=== PATIENT | female | born 1990 | race Caucasian/White ===

== ENCOUNTER 2019-11-11 17:58 | Emergency (ER) | payer OTHER, SELFPAY ==
--- NOTE | 2019-11-11 18:12 | ED.DENTAL ---
HPI - Dental/Oral General Chief complaint: Dental/Oral Stated complaint: swelling from jaw down throat Time Seen by Provider: 11/11/19 18:03 Source: patient Mode of arrival: ambulatory Limitations: no limitations History of Present Illness HPI Narrative: A 29-year-old woman comes in today complaining of right upper tooth pain that has been present for the last week. Patient states that she saw a dentist and he put her on amoxicillin. She did not have any x-rays or other testing. She has had no fever but the pain radiates down her neck on the right. She denies fever, nausea, vomiting or difficulty swallowing. MD Complaint: tooth pain Location: Tooth # (2) Onset (ago): week(s) (1) Duration: constant Severity: severe Relieving factors: nothing Exacerbating factors: chewing and cold Associated symptoms: gum swelling Treatment prior to arrival: oral analgesic Related Data Allergies Allergy/AdvReac Type Severity Reaction Status Date / Time No Known Allergies Allergy Mild Unverified 11/21/17 18:12 Review of Systems Constitutional: Constitutional: Denies chills and Denies fever(s) ENT: Denies dysphagia, Denies nasal congestion and Denies sore throat Cardiovascular: Cardiovascular: Denies chest pain and Denies radiating jaw, neck or arm pain Respiratory: Respiratory: Denies cough, Denies dyspnea and Denies wheezing Gastrointestinal: Gastrointestinal: Denies abdominal pain, Denies nausea and Denies vomiting Integumentary/Breasts: Skin/Breast: Denies pruritus, Denies erythema and Denies rash Neurologic: Denies vertigo, Denies dizziness and Denies syncope Endocrine: Endocrine: Denies polydipsia and Denies polyuria Hematologic/Lymphatic: Hematologic/Lymphatic: Denies easy bleeding and Denies easy bruising Allergic/Immunologic: Allergic/Immunologic: Denies lip swelling and Denies wheezing PMF Social History Social History (Updated 11/11/19 @ 18:22 by Trell Johnson MD) Smoking status: Current every day smoker Alcohol intake: never Substance use: never Living arrangements: with family Exam Const: General: healthy appearing and alert Nutritional Appearance: obese Orientation/consciousness: patient oriented x3 Other: Moderate acute distress HENMT: Ears: external ears normal, TM's normal bilaterally and EAC's normal Teeth and gingiva: abnormal tooth and associated gingiva ( tenderness at the tooth 2 and 3) Other: There is some erosion, erythema and mild swelling on the lingual side of tooth 2. Eyes: Conjunctivae: conjunctivae normal Pupils: Equal, round and reactive pupils present EOM: EOMs intact bilaterally Resp: Effort & Inspection: normal respiratory effort and not labored Auscultation: clear to auscultation bilaterally, no rales, no rhonchi and no wheezes Cardio: Rate: regular rate Rhythm: regular rhythm Heart sounds: no murmurs Skin: General skin exam: normal color, no jaundice and no pallor Rashes: no rashes Neuro: General: patient oriented x3, moves all extremities and CN's II-XI intact bilaterally Extrem: General: normal to inspection and no clubbing, cyanosis or edema Psych: Appearance: grossly normal and well kempt Mental Status: mental status grossly normal Affect: normal affect Attitude: cooperative Thought content: Yes Normal thought content present Discharge Plan Discharge Clinical Impression: Dental abscess Patient Disposition: Home, Self-Care Condition: Stable Instructions: Antibiotic Form, Toothache (ED) Prescriptions: New acetaminophen-codeine [Tylenol-Codeine #3] 300-30 mg tablet 1 tablet PO Q4H PRN (Reason: pain) Qty: 20 RF: 0 clindamycin HCl 300 mg capsule 300 mg PO Q6H Qty: 40 RF: 0 No Action tramadol [Ultram] 50 mg tablet 50 mg PO Q6H PRN (Reason: pain) Qty: 30 RF: 0 ondansetron HCl [Zofran] 4 mg tablet 4 mg PO Q6H PRN (Reason: nausea and vomiting) Qty: 14 RF: 0 tramadol [Ultram] 50 mg tablet 50 mg PO Q6H PRN
[2019-11-11 18:20] VITALS: BP 142/66; PULSE 99; RESP 18; TEMP 36.8; O2SAT 99
[2019-11-11 18:29] VITALS: BP 140/85; PULSE 85; RESP 20; O2SAT 99
== END 2019-11-11 18:32 | disposition home or self-care (01) ==
PROVIDERS: Emergency Provider Emergency Medicine; PCP Family Medicine
DX: K04.7 Periapical abscess without sinus (principal)
CPT/HCPCS: 99283

== ENCOUNTER 2019-11-18 13:40 | Emergency (ER) | payer OTHER, SELFPAY ==
[2019-11-18 14:05] VITALS: BP 129/79; PULSE 91; RESP 18; TEMP 36.4; O2SAT 97
--- NOTE | 2019-11-18 14:24 | ED.GENADULT ---
HPI - General Adult General Chief complaint: Dental/Oral Stated complaint: abcess tooth History of Present Illness HPI narrative: Cherie presented to the emergency department with persistent tooth pain. She has pain in her upper right molar for 2 weeks. She has seen the dentist who gave her amoxicillin sent her home. She was seen in the ER where she was given clindamycin and Tylenol 3. This was 1 week prior. It did originally help but pain has returned. She is only able to eat applesauce and it has kept her from work. She denies fevers, chills, change in her voice shortness of, nausea and vomiting. She is unable to get into a dentist this time because it not deemed an emergency by them and most are close for COVID. Related Data Allergies Allergy/AdvReac Type Severity Reaction Status Date / Time No Known Allergies Allergy Mild Unverified 11/21/17 18:12 Review of Systems Constitutional: Constitutional: Reports no additional constitutional complaints Eyes: Eyes: Reports no additional eye complaints ENT: Reports as per HPI Cardiovascular: Cardiovascular: Reports no additional cardiovascular complaints Respiratory: Respiratory: Reports no additional respiratory complaints Gastrointestinal: Gastrointestinal: Reports no additional gastrointestinal complaints Genitourinary: Genitourinary: Reports no additional female genitourinary complaints Musculoskeletal: Musculoskeletal: Reports no additional musculoskeletal complaints Integumentary/Breasts: Skin/Breast: Reports system reviewed and no additional complaints, except as docu Neurologic: Reports system reviewed and no additional complaints, except as documented Psychiatric: Psychiatric: Reports no additional psychiatric complaints Endocrine: Endocrine: Reports no additional endocrine complaints Hematologic/Lymphatic: Hematologic/Lymphatic: Reports no additional hematologic/lymphatic complaints Allergic/Immunologic: Allergic/Immunologic: Reports no additional allergic/immunologic complaints [facility] Social History Social History Smoking status: Current every day smoker Alcohol intake: never Substance use: never Exam Const: General: no acute distress and alert Orientation/consciousness: patient oriented x3 Limitations: No altered mental status HENMT: Other: Normocephalic, atraumatic. Right upper molar had surrounding swelling, erythema and TTP. Not currently draining Eyes: Pupils: Equal, round and reactive pupils present Neck: Neck: normal visual inspection Other: No lymphadenopathy Resp: Effort & Inspection: normal respiratory effort Auscultation: clear to auscultation bilaterally Cardio: Rate: regular rate Rhythm: regular rhythm Heart sounds: no murmurs GI: Inspection: non-distended GI Palp: Yes Soft to palpation and No Tenderness to palpation present (GI) Skin: General skin exam: normal color Rashes: no rashes Neuro: General: patient oriented x3 and moves all extremities Extrem: General: normal to inspection Psych: Mental Status: mental status grossly normal Course Course Emergency Course: Cherie was seen and evaluated. She instructed on the importance of following up with a dentist, given return precautions, written an Rx for [place] and Augmentin then discharged. Vital Signs Vital signs: Vital Signs Temperature 36.4 C 11/18/19 14:05 Pulse Rate 91 11/18/19 14:05 Respiratory Rate 18 11/18/19 14:05 Blood Pressure 129/79 11/18/19 14:05 Pulse Oximetry 97 11/18/19 14:05 Temperature 36.4 C 11/18/19 14:05 Pulse Rate 91 11/18/19 14:05 Respiratory Rate 15 11/18/19 14:41 Blood Pressure 129/79 11/18/19 14:05 Pulse Oximetry 100 11/18/19 14:41 Medical Decision Making MDM Narrative Medical decision making narrative: Given persistent pain, swelling, erythema I have concern for persistent infection so additional Abx were given Differential Diag
[2019-11-18 14:41] VITALS: RESP 15; O2SAT 100
== END 2019-11-18 14:43 | disposition home or self-care (01) ==
PROVIDERS: Emergency Provider Family Medicine; PCP Family Medicine
DX: K04.7 Periapical abscess without sinus (principal)
CPT/HCPCS: 99283

== ENCOUNTER 2019-12-08 17:22 | Emergency (ER) | payer OTHER, SELFPAY ==
[2019-12-08 17:30] VITALS: BP 103/62; PULSE 96; RESP 16; TEMP 36.8; O2SAT 99
--- NOTE | 2019-12-08 17:51 | ED.NAVMDI ---
HPI - Nausea/Vomiting/Diarrhea General Chief complaint: Nausea/Vomiting/Diarrhea Stated complaint: vomiting, stomach pain, diarrhea, weak Time Seen by Provider: 12/08/19 17:35 Source: patient and RN notes reviewed Mode of arrival: ambulatory Limitations: no limitations History of Present Illness MD elicited complaint: nausea, vomiting, diarrhea and abdominal pain Onset (ago): day(s) (2) Description of vomiting: food contents and bilious Description of diarrhea: watery Associated nausea: Yes Associated abdominal pain: Yes Location of pain: diffuse Pain consistency: colicky Severity: moderate Quality: cramping Exacerbating factors: eating Relieving factors: none Associated symptoms: weakness Treatment prior to arrival: none (Zofran) Related Data Home Medications Medication Instructions Recorded Confirmed sumatriptan succinate [Imitrex] 25 mg PO PRN PRN 12/08/19 12/08/19 Allergies Allergy/AdvReac Type Severity Reaction Status Date / Time No Known Allergies Allergy Mild Unverified 11/21/17 18:12 Review of Systems ENT: Reports system reviewed and no additional complaints, except as documented Cardiovascular: Cardiovascular: Reports no additional cardiovascular complaints Respiratory: Respiratory: Reports no additional respiratory complaints Musculoskeletal: Musculoskeletal: Reports no additional musculoskeletal complaints Neurologic: Reports system reviewed and no additional complaints, except as documented Psychiatric: Psychiatric: Reports no additional psychiatric complaints Hematologic/Lymphatic: Hematologic/Lymphatic: Reports no additional hematologic/lymphatic complaints PMFSH Past Medical History Medical History (Updated 12/08/19 @ 19:15 by Simba Romero MD) History of migraine Surgical History Surgical History (Updated 12/08/19 @ 18:00 by Simba Romero MD) Hx of tonsillectomy Social History Social History Smoking status: Current every day smoker Alcohol intake: never Substance use: never Exam Narrative: Exam Narrative: 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 Const: General: healthy appearing, no acute distress and alert Nutritional Appearance: well nourished and obese centrally obese Orientation/consciousness: patient oriented x3 HENMT: Head: normal to inspection General nose exam: Normal external nose present Face and sinus: normal facial exam Mouth: Yes lip normal and Yes moist mucous membranes Eyes: Cornea: corneas normal Pupils: Equal, round and reactive pupils present EOM: EOMs intact bilaterally Neck: Neck: normal visual inspection and no lymphadenopathy Resp: Effort & Inspection: normal respiratory effort Auscultation: clear to auscultation bilaterally Cardio: Rate: regular rate Rhythm: regular rhythm GI: GI Palp: Yes Soft to palpation, Yes Tenderness to palpation present (GI) ( Mild, diffusely), No Guarding due to palpation present (GI) and No Rebound tenderness present Auscultation: normal bowel sounds Back/Spine/Pelvis: Cervical Spine: cervical ROM normal Thoracic/Lumbar Spine: thoraco-lumbar ROM normal Skin: General skin exam: normal color Rashes: no rashes Neuro: General: patient oriented x3, moves all extremities and no focal motor deficits Speech: normal speech Extrem: General: normal to inspection and no clubbing, cyanosis or edema Psych: Appearance: grossly normal and well kempt Mental Status: mental status grossly normal Affect: normal affect Attitude: cooperative Thought content: Yes Normal thought content present Course Vital Signs Vital signs: Vital Signs Temperature 36.8 C 12/08/19 17:30 Pulse Rate 96 12/08/19 17:30 Respiratory Rate 16 12/08/19 17:30 Blood Pressure 103/62 12/08/19 17:30 Pulse Oximetry 99 12/08/19 17:30 Temperature 36.8 C 12/08/19 17:30 Pulse Rate 88 12/08/19 19:04 Respiratory Rate 13 12/08/19 19:04 Blood Pressure 104/57 L
[2019-12-08 18:04] LABS: Basophils Absolute Auto 0.04 K/mm3 (0.00-0.10); Basophils Percent Auto 0.4 % (0.0-1.0); Eosinophils Absolute Auto 0.27 K/mm3 (0.02-0.50); Eosinophils Percent Auto 2.6 % (1.0-6.0); Hematocrit 37.3 % (35.0-49.0); Hemoglobin 12.4 g/dL (12.0-15.0); Immature Granulocyte Absolute 0.02 K/mm3 (0.00-0.00); Immature Granulocyte Percent A 0.2 % (0.0-0.0); Lymphocytes Absolute Auto 2.63 K/mm3 (1.10-4.50); Lymphocytes Percent Auto 24.9 % (18.0-42.0); Mean Corpuscular HGB Conc 33.2 g/dL (32.0-36.0); Mean Corpuscular Hemoglobin 28.8 pg (27.0-31.0); Mean Corpuscular Volume 86.7 fL (78.0-102.0); Mean Platelet Volume 10.8 fl (9.2-11.8); Monocytes Absolute Auto 0.55 K/mm3 (0.10-0.90); Monocytes Percent Auto 5.2 % (2.0-11.0); Neutrophils Percent Auto 66.7 % (50.0-70.0); Platelet Count Result 312 K/mm3 (150-420); Red Cell Distribution Width 12.8 % (11.6-14.4); White Blood Count 10.6 K/mm3 (4.8-10.8)
[2019-12-08 18:20] LABS: Alanine Aminotransferase 14 U/L (14-59); Albumin Level 3.4 g/dL (3.4-5.0); Alkaline Phosphatase 65 U/L (46-116); Anion Gap 14.5 mmol/L (7-16); Aspartate Amino Transferase 12 U/L (15-37); Blood Urea Nitrogen 13 mg/dL (7-18); CRP 0.6 mg/dL (0.0-0.9); Carbon Dioxide 25 mmol/L (21-32); Chloride 104 mmol/L (98-108); Estimated CRCL calculation 101 ml/min; Estimated Glomerular Filt Rate > 60; Glucose 135 mg/dL (70-99); Lipase 115 U/L (73-393); Osmolality Calculated 292 mOsm/kg (285-295); Potassium 3.5 mmol/L (3.5-5.1); Sodium 140 mmol/L (136-145); Total Protein 7.1 g/dL (6.4-8.2)
[2019-12-08 18:22] LABS: Bilirubin,Total < 0.1 mg/dL (0.00-1.00)
[2019-12-08] MEDS: PROMETHAZINE HCL 25 MG/ML AMPUL IM (18:51)
[2019-12-08 19:04] VITALS: BP 104/57; PULSE 88; RESP 13; O2SAT 100
== END 2019-12-08 19:24 | disposition home or self-care (01) ==
PROVIDERS: Emergency Provider Emergency Medicine; PCP Family Medicine
DX: K52.9 Noninfective gastroenteritis and colitis, unspecified (principal)
CPT/HCPCS: 36415; 80053; 83690; 85025; 86140; 96372; 99283; J2550

== ENCOUNTER 2019-12-25 12:53 | Emergency (ER) | payer OTHER, SELFPAY ==
[2019-12-25 13:15] VITALS: BP 130/78; PULSE 104; RESP 21; TEMP 36.8; O2SAT 97
--- NOTE | 2019-12-25 13:37 | ED.SKABFB ---
HPI - Skin/Abscess/Foreign Bdy General Chief complaint: Skin/Abscess/Foreign Body Stated complaint: face swollen Source: patient Mode of arrival: ambulatory Limitations: no limitations History of Present Illness complaint: abscess/boil Onset (ago): day(s) Location: head and face Severity: mild Quality: burning, aching and sharp Pain Consistency: constant Relieving factors: none Exacerbating factors: none Associated symptoms: denies other symptoms Treatments prior to arrival: attempted to drain pus at home and antibiotic (taking 3 doese of left over clindamycin) Related Data Allergies Allergy/AdvReac Type Severity Reaction Status Date / Time No Known Allergies Allergy Mild Unverified 11/21/17 18:12 Review of Systems Review of Systems: All systems reviewed & are unremarkable except as noted in HPI and below PMFSH Past Medical History Medical History History of migraine Surgical History Surgical History Hx of tonsillectomy Social History Social History Smoking status: Current every day smoker Alcohol intake: never Substance use: never Gender identity (if verbalized by the patient): Male Exam Const: General: no acute distress Nutritional Appearance: well nourished and obese Orientation/consciousness: patient oriented x3 HENMT: Head: normal to inspection Eyes: Pupils: Equal, round and reactive pupils present Neck: Neck: normal visual inspection Chest: Chest palpation & inspection: normal inspection of the chest Resp: Effort & Inspection: normal respiratory effort Cardio: Rate: regular rate GI: Auscultation: normal bowel sounds Skin: General skin exam: normal color Other: small areaas of abscess to mid forehead at hair line. no significant swelling, sild redness. No puss could be expressed at this time, but pt states greenish colored pus had been obtained earlier today Neuro: General: patient oriented x3 Extrem: General: normal to inspection Psych: Appearance: grossly normal Mental Status: mental status grossly normal Thought content: Yes Normal thought content present Course Course Emergency Course: unable to express pus Vital Signs Vital signs: Vital Signs Temperature 36.8 C 12/25/19 13:15 Pulse Rate 104 H 12/25/19 13:15 Respiratory Rate 21 H 12/25/19 13:15 Blood Pressure 130/78 12/25/19 13:15 Pulse Oximetry 97 12/25/19 13:15 Temperature 36.8 C 12/25/19 13:15 Pulse Rate 104 H 12/25/19 13:15 Respiratory Rate 21 H 12/25/19 13:15 Blood Pressure 130/78 12/25/19 13:15 Pulse Oximetry 97 12/25/19 13:15 Critical Care Time Critical Care Time Critical Care Time: No Discharge Plan Discharge Clinical Impression: Abscess of skin or subcutaneous tissue Patient Disposition: Home, Self-Care Condition: Stable Instructions: Antibiotic Form, Abscess (ED) Prescriptions: New sulfamethoxazole-trimethoprim [Bactrim DS] 800-160 mg tablet 1 tablet PO Q12H Qty: 20 RF: 0 Follow-up/Referrals: Leonardo Taylor DO [Primary Care Provider] - Time of Disposition: 13:43
[2019-12-25] MEDS: TETANUS,DIPHTHERIA,AC PERTUSSIS ADULT 0.5 ML (ADACEL) IM (14:14)
[2019-12-25 14:22] VITALS: RESP 16
== END 2019-12-25 14:23 | disposition home or self-care (01) ==
PROVIDERS: Emergency Provider Emergency Medicine; PCP Family Medicine
DX: L02.91 Cutaneous abscess, unspecified (principal)
CPT/HCPCS: 90471; 90715; 99283

== ENCOUNTER 2020-03-01 19:27 | Emergency (ER) | payer OTHER, SELFPAY ==
[2020-03-01 19:47] VITALS: BP 141/77; PULSE 87; RESP 18; TEMP 36.9; O2SAT 97
--- NOTE | 2020-03-01 19:54 | ED.HA ---
HPI - Headache General Chief Complaint: Headache Stated Complaint: migraine Time Seen by Provider: 03/01/20 19:54 Source: patient Mode of arrival: ambulatory Limitations: no limitations History of Present Illness HPI Narrative: 29-year-old woman with history of migraines comes in today complaining of headache pain that is frontal and typical for her migraines and associated with nausea. She states that her headache started approximately 10:00 p.m. last night. She has had no fever, vomiting and she has no history of seizures, recent head injury. She states that she has taken [id number] anti-inflammatories today and she has taken 2 doses 25 mg Imitrex p.o. to no avail. MD elicited complaint: migraine Pertinent past history: migraines Onset (ago): day(s) (1) Onset description: gradually Location: frontal Severity: moderate Quality & Timing: throbbing and constant Exacerbating factors: none Relieving factors: nothing Context: occurred at rest Associated symptoms: nausea Treatments prior to arrival: migraine medication and other ( Excedrin migraine) Related Data Home Medications Medication Instructions Recorded Confirmed sumatriptan succinate [Imitrex] 50 mg PO ONCE 03/01/20 03/01/20 Allergies Allergy/AdvReac Type Severity Reaction Status Date / Time No Known Allergies Allergy Mild Unverified 11/21/17 18:12 Review of Systems Constitutional: Constitutional: Denies chills, Denies fever(s) and Denies weakness Eyes: Eyes: Denies change in vision and Reports photophobia ENT: Denies dysphagia, Denies nasal congestion and Denies sore throat Cardiovascular: Cardiovascular: Reports chest pain and Reports radiating jaw, neck or arm pain Respiratory: Respiratory: Reports cough, Reports dyspnea and Reports wheezing Gastrointestinal: Gastrointestinal: Denies abdominal pain, Denies diarrhea, Reports nausea and Denies vomiting Musculoskeletal: Musculoskeletal: Denies back pain, Denies joint swelling and Denies muscle cramps Integumentary/Breasts: Skin/Breast: Denies pruritus, Denies erythema and Denies rash Neurologic: Denies vertigo, Denies dizziness and Denies syncope Hematologic/Lymphatic: Hematologic/Lymphatic: Denies easy bleeding and Denies easy bruising Allergic/Immunologic: Allergic/Immunologic: Denies lip swelling and Denies wheezing PMFSH Past Medical History Medical History History of migraine Surgical History Surgical History Hx of tonsillectomy Social History Social History Smoking status: Current every day smoker Alcohol intake: never Substance use: never Gender identity (if verbalized by the patient): Male Exam Const: General: healthy appearing and alert Limitations: no limitations Other: moderate acute distress. HENMT: Head: normal to inspection Ears: external ears normal, TM's normal bilaterally and EAC's normal Face and sinus: normal facial exam Mouth: Yes moist mucous membranes abnormal Throat: posterior oropharynx normal Eyes: Conjunctivae: conjunctivae normal Pupils: Equal, round and reactive pupils present EOM: EOMs intact bilaterally Neck: Neck: normal visual inspection and no meningeal signs Resp: Effort & Inspection: normal respiratory effort and not labored Auscultation: clear to auscultation bilaterally, no rales, no rhonchi and no wheezes Cardio: Rate: regular rate Rhythm: regular rhythm Heart sounds: no murmurs Skin: General skin exam: normal color, no jaundice and no pallor Rashes: no rashes Neuro: General: patient oriented x3, moves all extremities, no focal motor deficits and CN's II-XI intact bilaterally Speech: normal speech Gait exam (Neuro): Normal gait present Other: Normal [id number]. DTRs 2+ and symmetric at the patellar and calcaneal tenderness bilaterally. Extr
[2020-03-01] MEDS: KETOROLAC (*BKC) 60 MG/2 ML VIAL IM (20:13)
[2020-03-01] MEDS: diphenhydrAMINE HCl INJ 50 MG/ML VIAL 25 MG IM (20:13)
[2020-03-01] MEDS: METOCLOPRAMIDE HCL INJ 10 MG/2 ML VIAL IM (20:14)
[2020-03-01 21:05] VITALS: BP 124/69; PULSE 90; RESP 18; O2SAT 98
== END 2020-03-01 21:10 | disposition home or self-care (01) ==
PROVIDERS: Emergency Provider Emergency Medicine; PCP Family Medicine
DX: G43.909 Migraine, unspecified, not intractable, without status migrainosus (principal)
CPT/HCPCS: 96372; 99283; 99284; J1200; J1885; J2765

== ENCOUNTER 2020-03-08 14:11 | Emergency (ER) | payer OTHER, SELFPAY ==
[2020-03-08 14:14] VITALS: BP 151/85; PULSE 117; RESP 16; TEMP 36.8; O2SAT 98
[2020-03-08 14:20] VITALS: RESP 16
--- NOTE | 2020-03-08 14:44 | ED.GENADULT ---
HPI - General Adult General Chief complaint: Unspecified Stated complaint: sore thorat cant swallow Source: patient Mode of arrival: ambulatory Limitations: no limitations History of Present Illness HPI narrative: pt states she started having a sore throat yesterday, and was worse today. No fevers, no nausea, no SOB, no cough. She states its just a sore throat and she feels a little tired Onset (ago): day(s) Severity: mild Quality: sharp Pain Consistency: constant Associated symptoms: denies other symptoms Related Data Home Medications Medication Instructions Recorded Confirmed ketorolac 10 mg PO QID PRN 03/08/20 03/08/20 Allergies Allergy/AdvReac Type Severity Reaction Status Date / Time No Known Allergies Allergy Mild Verified 03/08/20 14:53 Review of Systems Review of Systems: All systems reviewed & are unremarkable except as noted in HPI and below Constitutional: Constitutional: Denies chills, Reports fatigue, Denies fever(s) and Denies weakness Eyes: Eyes: Reports no additional eye complaints ENT: Reports system reviewed and no additional complaints, except as documented, Denies vertigo, Denies dizziness, Denies epistaxis, Denies nasal congestion and Reports sore throat Cardiovascular: Cardiovascular: Reports no additional cardiovascular complaints Respiratory: Respiratory: Reports no additional respiratory complaints Gastrointestinal: Gastrointestinal: Reports no additional gastrointestinal complaints Genitourinary: Genitourinary: Reports no additional female genitourinary complaints Musculoskeletal: Musculoskeletal: Reports no additional musculoskeletal complaints Integumentary/Breasts: Skin/Breast: Reports system reviewed and no additional complaints, except as docu Neurologic: Reports system reviewed and no additional complaints, except as documented Psychiatric: Psychiatric: Reports no additional psychiatric complaints Endocrine: Endocrine: Reports no additional endocrine complaints Hematologic/Lymphatic: Hematologic/Lymphatic: Reports no additional hematologic/lymphatic complaints Allergic/Immunologic: Allergic/Immunologic: Reports no additional allergic/immunologic complaints [facility] Past Medical History Medical History History of migraine Surgical History Surgical History Hx of tonsillectomy Social History Social History Smoking status: Current every day smoker Alcohol intake: never Substance use: never Gender identity (if verbalized by the patient): Male Exam Const: General: no acute distress and alert Orientation/consciousness: patient oriented x3 HENMT: Head: normal to inspection Other: mild erythema in throat Eyes: Pupils: Equal, round and reactive pupils present Neck: Neck: normal visual inspection and lymphadenopathy Chest: Chest palpation & inspection: normal inspection of the chest Resp: Effort & Inspection: normal respiratory effort Cardio: Rate: regular rate GI: GI Palp: Yes Soft to palpation and No Tenderness to palpation present (GI) Auscultation: normal bowel sounds : General: Yes no CVA tenderness Back/Spine/Pelvis: Back: no CVA tenderness Skin: General skin exam: normal color Neuro: General: patient oriented x3, moves all extremities, no meningeal signs and no focal motor deficits Speech: normal speech Extrem: General: normal to inspection Psych: Appearance: grossly normal Mental Status: mental status grossly normal Course Vital Signs Vital signs: Vital Signs Temperature 36.8 C 03/08/20 14:14 Pulse Rate 117 H 03/08/20 14:14 Respiratory Rate 16 03/08/20 14:14 Blood Pressure 151/85 H 03/08/20 14:14 Pulse Oximetry 98 03/08/20 14:14 Temperature 36.8 C 03/08/20 14:14 Pulse Rate 117 H 03/08/20 14:14 Respiratory Rate 16 03/08
[2020-03-08 15:35] VITALS: BP 132/93; PULSE 106; O2SAT 98
== END 2020-03-08 15:35 | disposition home or self-care (01) ==
PROVIDERS: Emergency Provider Emergency Medicine; PCP Family Medicine
DX: J02.9 Acute pharyngitis, unspecified (principal)
CPT/HCPCS: 87081; 87880; 99282; 99283

== ENCOUNTER 2020-05-19 19:43 | Emergency (ER) | payer OTHER, SELFPAY ==
[2020-05-19 19:58] VITALS: BP 137/68; PULSE 95; RESP 16; TEMP 36.3; O2SAT 97
--- NOTE | 2020-05-19 20:43 | ED.HA ---
HPI - Headache General Chief Complaint: Headache Stated Complaint: migraine Source: patient Mode of arrival: ambulatory Limitations: no limitations History of Present Illness HPI Narrative: this is a 30-year-old female presents with some migraine headache throbbing right-sided with some light sensitivity and sound sensitivity, with nausea with no vomiting has some blurry vision this is her typical migraine headache has tried [id number] medications with minimal relief. There is no vomiting no fever no neck stiffness no shortness of breath no abdominal pain no diarrhea constipation. MD elicited complaint: headache and migraine Onset (ago): hour(s) Onset description: gradually Location: right and other ( Pulsating) Severity: moderate Pain scale (0-10): 8 Quality & Timing: throbbing and similar to previous headaches Exacerbating factors: light and noise Relieving factors: rest Context: occurred at rest Associated symptoms: nausea Related Data Home Medications Medication Instructions Recorded Confirmed ketorolac 10 mg PO QID PRN 03/08/20 05/19/20 Allergies Allergy/AdvReac Type Severity Reaction Status Date / Time No Known Allergies Allergy Mild Verified 03/08/20 14:53 Review of Systems Review of Systems: All systems reviewed & are unremarkable except as noted in HPI and below PMFSH Past Medical History Medical History History of migraine Surgical History Surgical History Hx of tonsillectomy Social History Social History Smoking status: Current every day smoker Alcohol intake: never Substance use: never Gender identity (if verbalized by the patient): Male Exam Const: General: no acute distress and alert Orientation/consciousness: patient oriented x3 HENMT: Head: normal to inspection Ears: external ears normal Eyes: Conjunctivae: conjunctivae normal Pupils: Equal, round and reactive pupils present EOM: EOMs intact bilaterally Neck: Neck: normal visual inspection, no lymphadenopathy and no meningeal signs Chest: Chest palpation & inspection: normal inspection of the chest Resp: Effort & Inspection: normal respiratory effort Auscultation: clear to auscultation bilaterally Cardio: Rate: regular rate Rhythm: regular rhythm GI: GI Palp: Yes Soft to palpation Auscultation: normal bowel sounds : General: Yes no CVA tenderness Urinary Catheter: Urinary Catheter: patent and draining Back/Spine/Pelvis: Back: no CVA tenderness Neuro: General: patient oriented x3, moves all extremities, no meningeal signs and no focal motor deficits Extrem: General: normal to inspection and no pedal edema Psych: Appearance: grossly normal Mental Status: mental status grossly normal Affect: normal affect Thought content: Yes Normal thought content present Course Course Emergency Course: After re-evaluation of patient after receiving a Toradol/ Reg gland/Benadryl and IV fluids as patient is pain level has significantly improved. Vital Signs Vital signs: Vital Signs Temperature 36.3 C L 05/19/20 19:58 Pulse Rate 95 05/19/20 19:58 Respiratory Rate 16 05/19/20 19:58 Blood Pressure 137/68 05/19/20 19:58 Pulse Oximetry 97 05/19/20 19:58 Temperature 36.3 C L 05/19/20 19:58 Pulse Rate 95 05/19/20 19:58 Respiratory Rate 16 05/19/20 19:58 Blood Pressure 137/68 05/19/20 19:58 Pulse Oximetry 97 05/19/20 19:58 Critical Care Time Critical Care Time Critical Care Time: No Discharge Plan Discharge Clinical Impression: Migraine Qualifiers: Migraine type: unspecified Status migrainosus presence: without status migrainosus Intractability: not intractable Qualified Code(s): G43.909 - Migraine, unspecified, not intractable, without status migrainosus Patient Disposition: Home, Self-Care Cond
[2020-05-19] MEDS: diphenhydrAMINE HCl INJ 50 MG/ML VIAL 25 MG IV PUSH (20:46)
[2020-05-19] MEDS: SODIUM CHLORIDE 0.9% IV 1,000 ML 999 ML IV CONT (20:46)
[2020-05-19] MEDS: KETOROLAC 30 MG/ML VIAL (*BKC) IV PUSH (20:47)
[2020-05-19] MEDS: METOCLOPRAMIDE HCL INJ 10 MG/2 ML VIAL IV PUSH (20:50)
[2020-05-19 21:46] VITALS: BP 125/56; PULSE 77; RESP 16; O2SAT 98
== END 2020-05-19 21:46 | disposition home or self-care (01) ==
PROVIDERS: Emergency Provider Emergency Medicine; PCP Family Medicine
DX: G43.909 Migraine, unspecified, not intractable, without status migrainosus (principal)
CPT/HCPCS: 96361; 96374; 96375; 99283; 99284; J1200; J1885; J2765; J7030

== ENCOUNTER 2020-06-27 17:04 | Emergency (ER) | payer OTHER, SELFPAY ==
[2020-06-27 17:10] VITALS: BP 134/74; PULSE 109; RESP 20; TEMP 37; O2SAT 97
--- NOTE | 2020-06-27 17:12 | ED.SKABFB ---
HPI - Skin/Abscess/Foreign Bdy General Stated complaint: sores on knee and thigh Source: patient and RN notes reviewed Mode of arrival: ambulatory Limitations: no limitations History of Present Illness complaint: abscess/boil Onset (ago): day(s) (3) Location: RLE Severity: moderate Quality: burning and dull Relieving factors: none Exacerbating factors: palpation and movement Context: none Associated symptoms: denies other symptoms Treatments prior to arrival: bandages and OTC topical medication (drawing elisabeth) Related Data Home Medications Medication Instructions Recorded Confirmed ketorolac 10 mg PO QID PRN 03/08/20 05/19/20 Allergies Allergy/AdvReac Type Severity Reaction Status Date / Time No Known Allergies Allergy Mild Verified 03/08/20 14:53 Review of Systems Review of Systems: All systems reviewed & are unremarkable except as noted in HPI and below Constitutional: Constitutional: Denies chills and Denies fever(s) PMFSH Past Medical History Medical History (Updated 06/27/20 @ 17:28 by Simba Romero MD) Depression History of migraine Surgical History Surgical History Hx of tonsillectomy Social History Social History Smoking status: Current every day smoker Alcohol intake: never Substance use: never Gender identity (if verbalized by the patient): Male Exam Const: General: healthy appearing and no acute distress Nutritional Appearance: well nourished Orientation/consciousness: patient oriented x3 Other: Female nurse in room during examination. HENMT: Head: normal to inspection Ears: external ears normal Eyes: Conjunctivae: conjunctivae normal Pupils: Equal, round and reactive pupils present EOM: EOMs intact bilaterally Neck: Neck: normal visual inspection Resp: Effort & Inspection: normal respiratory effort Auscultation: clear to auscultation bilaterally Cardio: Rate: regular rate Rhythm: regular rhythm GI: GI Palp: Yes Soft to palpation and No Tenderness to palpation present (GI) Auscultation: normal bowel sounds Back/Spine/Pelvis: Cervical Spine: cervical ROM normal Thoracic/Lumbar Spine: thoraco-lumbar ROM normal Skin: General skin exam: erythema, fluctuance and induration Lesions: lesion noted erosion right anterior upper leg borders well-defined, color, consistency fluctuant and mobile, morphology and tender Other: Patient has multiple excoriated lesions on her lower extremities. Most are healing with scabs. Area in question is the right upper thigh just distal to the inguinal canal. Very tender appears ulcerated. When palpated there is no drainage available for culture. Neuro: General: patient oriented x3, moves all extremities and no focal motor deficits Speech: normal speech Gait exam (Neuro): Normal gait present Extrem: General: no clubbing, cyanosis or edema Psych: Appearance: grossly normal and well kempt Mental Status: mental status grossly normal Affect: normal affect Attitude: cooperative Thought content: Yes Normal thought content present Discharge Plan Discharge Clinical Impression: Abscess Patient Disposition: Home, Self-Care Condition: Stable Instructions: Antibiotic Form, Abscess (ED) Additional Instructions: use Tylenol and or Motrin as needed for pain follow-up with your primary care physician in the worsening symptoms. Prescriptions: New sulfamethoxazole-trimethoprim [Bactrim DS] 800-160 mg tablet 2 tablet PO Q12H 14 Days Qty: 56 RF: 0 No Action ketorolac 10 mg Tablet 10 mg PO QID PRN (Reason: Migraine Headache) RF: 0 tramadol [Ultram] 50 mg tablet 50 mg PO Q6H PRN (Reason: pain) Qty: 20 RF: 0 ondansetron HCl [Zofran] 4 mg tablet 4 mg PO Q6H PRN (Reason: nausea and vomiting) Qty: 10 RF: 0 Follow-up/Referrals: Avery Rosenbaum M.D. [Primary Care Provider] - Time of Disposition:
[2020-06-27 17:30] VITALS: RESP 20
== END 2020-06-27 17:30 | disposition home or self-care (01) ==
PROVIDERS: Emergency Provider Emergency Medicine; PCP Family Medicine
DX: L02.91 Cutaneous abscess, unspecified (principal)
CPT/HCPCS: 99283

== ENCOUNTER 2020-12-19 21:30 | Emergency (ER) | payer OTHER, SELFPAY ==
--- NOTE | ~2020-12-19 | XR_ITS ---
EXAMINATION: XR chest 2V DATE: 12/19/2020 23:53 INDICATION: Cough. TECHNIQUE: Frontal and lateral views of the chest were obtained. COMPARISON: None. FINDINGS: The chest demonstrates clear lungs without pneumonia, pleural effusion, or pneumothorax. Th e heart size is normal. IMPRESSION: 1. . No acute cardiopulmonary disease. Reviewed, dictated and finalized at location A.
--- NOTE | 2020-12-19 22:15 | ED.URI ---
HPI - URI/Sore Throat General Chief Complaint: Upper Respiratory Infection Stated Complaint: cough Source: patient and RN notes reviewed Mode of arrival: ambulatory Limitations: no limitations History of Present Illness MD elicited complaint: cough Pertinent past history: other (bronchitis) Onset (ago): week(s) (1) Consistency: constant Severity: moderate Able to tolerate fluids by mouth: Yes Exacerbating factors: nothing Relieving factors: nothing Associated symptoms: nasal congestion and sore throat Treatments prior to arrival: none Related Data Home Medications Medication Instructions Recorded Confirmed No Home Medications 12/19/20 12/19/20 Allergies Allergy/AdvReac Type Severity Reaction Status Date / Time No Known Allergies Allergy Mild Verified 03/08/20 14:53 Review of Systems Constitutional: Constitutional: Denies chills, Denies fever(s) and Denies weakness Respiratory: Respiratory: Denies dyspnea and Denies wheezing Gastrointestinal: Gastrointestinal: Denies diarrhea, Denies nausea and Denies vomiting Neurologic: Reports system reviewed and no additional complaints, except as documented PMFSH Past Medical History Medical History Depression History of migraine Surgical History Surgical History Hx of tonsillectomy Social History Social History Smoking status: Current every day smoker Alcohol intake: never Substance use: never Gender identity (if verbalized by the patient): Male Exam Const: General: healthy appearing and no acute distress Nutritional Appearance: well nourished and obese centrally obese Orientation/consciousness: patient oriented x3 HENMT: Head: normal to inspection Ears: external ears normal and TM's normal bilaterally General nose exam: Normal external nose present and Normal nares present Face and sinus: normal facial exam Mouth: Yes moist mucous membranes Throat: posterior oropharynx normal Eyes: Conjunctivae: conjunctivae normal Pupils: Equal, round and reactive pupils present EOM: EOMs intact bilaterally Neck: Neck: normal visual inspection and no lymphadenopathy Resp: Effort & Inspection: normal respiratory effort Auscultation: rhonchi upper bilaterally Cardio: Rate: regular rate Rhythm: regular rhythm Back/Spine/Pelvis: Cervical Spine: cervical ROM normal Thoracic/Lumbar Spine: thoraco-lumbar ROM normal Skin: General skin exam: normal color Rashes: no rashes Neuro: General: patient oriented x3, moves all extremities and no focal motor deficits Speech: normal speech Gait exam (Neuro): Normal gait present Extrem: General: normal to inspection and no clubbing, cyanosis or edema Psych: Appearance: grossly normal and well kempt Mental Status: mental status grossly normal Affect: normal affect Attitude: cooperative Thought content: Yes Normal thought content present Course Vital Signs Vital signs: Vital Signs Temperature 36.3 C L 12/19/20 22:30 Pulse Rate 85 12/19/20 22:30 Respiratory Rate 20 12/19/20 22:30 Blood Pressure 135/88 12/19/20 22:30 Pulse Oximetry 97 12/19/20 22:30 Temperature 36.6 C 12/20/20 00:36 Pulse Rate 85 12/20/20 00:36 Respiratory Rate 20 12/20/20 00:36 Blood Pressure 133/71 12/20/20 00:36 Pulse Oximetry 98 12/20/20 00:36 MDM - URI/Sore Throat Lab Data Labs: Lab Results 12/19/20 12/19/20 Range/Units 22:40 22:40 Influenza Type A Ag Negative (Negative) Influenza Type B Ag Negative (Negative) SARS-CoV-2 RNA (RT-PCR) Negative (Negative) Discharge Plan Discharge Clinical Impression: Upper respiratory infection Qualifiers: URI type: unspecified viral URI Qualified Code(s): J06.9 - Acute upper respiratory infection, unspecified Patient Disposition: Home, Self-Care Condition: Stable
[2020-12-19 22:30] VITALS: BP 135/88; PULSE 85; RESP 20; TEMP 36.3; O2SAT 97
[2020-12-19 22:43] VITALS: O2SAT 96
[2020-12-19 23:24] LABS: SARS-CoV-2 RNA PCR Negative (Negative)
[2020-12-19 23:47] LABS: Influenza Control Valid (Valid)
[2020-12-20 00:36] VITALS: BP 133/71; PULSE 85; RESP 20; TEMP 36.6; O2SAT 98
== END 2020-12-20 00:37 | disposition home or self-care (01) ==
PROVIDERS: Emergency Provider Emergency Medicine; PCP Family Medicine
DX: J06.9 Acute upper respiratory infection, unspecified (principal); Z20.822 Contact with and (suspected) exposure to COVID-19
CPT/HCPCS: 71046; 87804; 99282; 99283; C9803; U0003; U0005

== ENCOUNTER 2021-08-18 13:02 | Emergency (ER) | payer OTHER, SELFPAY ==
[2021-08-18 13:08] VITALS: BP 131/88; PULSE 110; RESP 16; TEMP 36.6; O2SAT 97
--- NOTE | 2021-08-18 13:15 | ED.SKABFB ---
HPI - Skin/Abscess/Foreign Bdy General Chief complaint: Skin/Abscess/Foreign Body Stated complaint: eye and face swollen Source: patient Mode of arrival: ambulatory Limitations: no limitations History of Present Illness HPI narrative: this is a 31-year-old female with no significant past medical history presents with firm abscess with some erythema and redness in the right restoration area that is firm painful to touch with no tracking there is an area of erythema surrounding the abscess but not affecting the the eye with no fever chills no shortness of breath. complaint: abscess/boil Onset (ago): day(s) Location: face Severity scale (1-10): 3 Quality: burning and aching Related Data Allergies Allergy/AdvReac Type Severity Reaction Status Date / Time No Known Allergies Allergy Mild Verified 08/18/21 13:13 Review of Systems Review of Systems: All systems reviewed & are unremarkable except as noted in HPI and below PMFSH Past Medical History Medical History Depression History of migraine Surgical History Surgical History Hx of tonsillectomy Social History Social History Smoking status: Current every day smoker Alcohol intake: never Substance use: never Gender identity (if verbalized by the patient): Male Exam Const: General: no acute distress Orientation/consciousness: patient oriented x3 HENMT: Head: normal to inspection Eyes: Conjunctivae: conjunctivae normal Pupils: Equal, round and reactive pupils present Neck: Neck: normal visual inspection, no lymphadenopathy and no meningeal signs Chest: Chest palpation & inspection: normal inspection of the chest Resp: Effort & Inspection: normal respiratory effort Auscultation: clear to auscultation bilaterally Cardio: Rate: regular rate Rhythm: regular rhythm GI: Auscultation: normal bowel sounds : General: Yes no CVA tenderness Back/Spine/Pelvis: Back: no CVA tenderness Skin: Other: Firm abscess bright temper area with an area of erythema that is firm tender to touch warm with no drainage. Neuro: General: patient oriented x3 Extrem: General: normal to inspection and no pedal edema Psych: Mental Status: mental status grossly normal Course Course Emergency Course: Abscess formation right restoration area, will administer 1g ceftriaxone IM and advised patient to take Tylenol or Motrin along with p.o. antibiotics sent to her pharmacy. Critical Care Time Critical Care Time Critical Care Time: No Discharge Plan Discharge Clinical Impression: Cellulitis Qualifiers: Site of cellulitis: head Qualified Code(s): L03.811 - Cellulitis of head [any part, except face] Abscess of skin or subcutaneous tissue Qualifiers: Site of cutaneous abscess: head Qualified Code(s): L02.811 - Cutaneous abscess of head [any part, except face] Patient Disposition: Home, Self-Care Condition: Stable Instructions: Antibiotic Form, Cellulitis (ED), Abscess (ED) Additional Instructions: Take medicine as prescribed, can take Tylenol or Motrin along with antibiotics and follow-up primary care physician within 1 week for further evaluation and treatment. Prescriptions: New amoxicillin-pot clavulanate [Augmentin] 875-125 mg tablet 1 tablet PO Q12H Qty: 20 RF: 0 Follow-up/Referrals: Avery Rosenbaum M.D. [Primary Care Provider] - Time of Disposition: 13:20
--- NOTE | 2021-08-18 13:37 | PC.NURSE ---
ERP gave verbal with readback order to administer 2mL of lidocaine with Rocephin injection IM.
[2021-08-18] MEDS: cefTRIAXone 1 GM VIAL IM (13:38)
[2021-08-18] MEDS: LIDOCAINE HCL 1% LOCAL INJ 20 ML VIAL (13:38)
== END 2021-08-18 13:42 | disposition home or self-care (01) ==
PROVIDERS: Emergency Provider Emergency Medicine; PCP Family Medicine
DX: L03.811 Cellulitis of head [any part, except face] (principal); L02.811 Cutaneous abscess of head [any part, except face]
CPT/HCPCS: 96372; 99283; J0696

== ENCOUNTER 2021-10-01 17:02 | Inpatient (IN) | payer OTHER, SELFPAY ==
[2021-10-01] VITALS (7 sets, daily range): BP systolic 113–153; BP diastolic 64–108; PULSE 112–126; RESP 15–20; TEMP 35.6–37.9; O2SAT 100; BMI 34.2
--- NOTE | ~2021-10-01 | CT_ITS ---
EXAMINATION: CT soft tissue neck w con DATE: 10/01/2021 19:21 INDICATION: Swelling of the neck and right nondenominational TECHNIQUE: Computed tomography (CT) of the neck was performed with 75 cc of Omnipaque 350 intravenous contrast. The dose-length product (DLP) was 508.53 mGy-cm. Automated exposure control and iterative reconstruction technique were employed. COMPARISON: None FINDINGS: There is marked cellulitis and soft tissue swelling of the right nondenominational. No discrete fluid collection or abscess is identified. There is mild posterior cervical triangle lymphadenopathy on the right. The airway is patent. The vascular structures are unremarkable. IMPRESSION: 1. Soft tissue cellulitis of the left nondenominational without associated abscess. 2. Lymphadenopathy of the right neck, likely reactive. Reviewed, dictated and finalized at location F. [facility] TESTER
--- NOTE | ~2021-10-01 | CT_ITS ---
EXAMINATION: CT facial bones wo con DATE: 10/03/2021 16:51 INDICATION: Right temporal cellulitis and severe pain. TECHNIQUE: Computed tomography (CT) of the facial bones and maxillofacial region was performed withou t intravenous contrast. Coronal reconstructions were obtained. Automated exposure control and iterati ve reconstruction technique were employed. The dose-length product was 300.62 mGy-cm. COMPARISON: 10/01/2021 FINDINGS: No significant change in prominence of tissue swelling with subcutaneous edema at the right side of t he face extending to the right temporal region. No evident abscess. There is asymmetrically enlarged likely reactive lymphadenopathy in the right submandibular, intraparotid, preauricular, jugular chain and posterior cervical triangle. Bones are unremarkable. Orbits are normal. The paranasal sinuses, m astoid air cells and middle ear cavities are clear. Mild mid cervical spondylosis. IMPRESSION: 1. Unchanged soft tissue cellulitis at the right side of the face and temporal region of the head. No abscess. 2. Asymmetric right-sided facial and cervical lymphadenopathy. Reviewed, dictated and finalized at location A. R AEROBICS INSTRUCTOR
--- NOTE | ~2021-10-01 | US_ITS ---
US renal BI 10/07/2021 09:03 Procedure: Realtime transabdominal ultrasound of the kidneys and bladder. Indication: Acute renal insufficiency Comparison: No prior studies for comparison. Findings: Renal echotexture is normal bilaterally without hydronephrosis, contour deforming mass or r enal calculus. The right kidney measures 12.4 cm and left kidney measures 13.2 cm. Bladder within no rmal limits. Impression: 1: Unremarkable renal ultrasound. No stones, masses or hydronephrosis. Reviewed, dictated and finalized at location A. METER OPERATOR Impression: 1: Unremarkable renal ultrasound. No stones, masses or hydronephrosis.
--- NOTE | 2021-10-01 17:37 | ECG_ITS ---
Measurements Intervals [place] Rate: 109 P: 64 NM: 139 QRS: 48 QRSD: 77 T: 33 QT: 330 QTc: 446 Interpretive Statements SINUS TACHYCARDIA BASELINE ARTIFACT- I, III, AVL, AVF ABNORMAL ECG Electronically Signed On 10-01-2021 20:28:59 HAND TUFTER by Tolu Howe D.O.
--- NOTE | 2021-10-01 17:43 | ED.GENADULT ---
HPI - General Adult General Chief complaint: Wound/Laceration Stated complaint: facial infection Time Seen by Provider: 10/01/21 17:14 Source: patient Mode of arrival: ambulatory Limitations: no limitations History of Present Illness HPI narrative: Patient presents for evaluation of right-sided facial pain and swelling. She states 2 days ago she attempted to trim the hair in her temporal region. He electric suly was not working so she repeatedly went over the area with a razor. Yesterday she had some irritation in that area and noted a pimple . Today she woke from sleep with significant swelling. She has noted a green discharge from the area. No fever, chills, nausea, vomiting. She is not diabetic. She attempted to apply prid to the area. She states her pain level is 7/10 in severity. She has a hx of drug abuse. 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 She does use marijuana. She initially informed me that she has not used any other street drugs in a year, but later tells me that she used cocaine about a week ago. She states that she has intermittently been seeing spots out of her right eye today. Related Data Home Medications Medication Instructions Recorded Confirmed No Home Medications 10/01/21 10/01/21 Allergies Allergy/AdvReac Type Severity Reaction Status Date / Time No Known Allergies Allergy Mild Verified 08/18/21 13:13 Review of Systems Review of Systems: CONSTITUTIONAL: Denies fever, chills, or sweats. EYES:Reports seeing spots with right eye. Denies other visual disturbance. ENT: Reports right sided facial pain. Reports green drainage from right side of the face. Denies rhinorrhea, congestion, sore throat, or otalgia. CARDIOVASCULAR: Denies chest pain, palpitations, or edema. RESPIRATORY: Denies cough or dyspnea. GASTROINTESTINAL: Denies abdominal pain, nausea, vomiting, or diarrhea. GENITOURINARY: Denies dysuria or hematuria. SKIN: Reports area of swelling and redness to right side of her face MUSCULOSKELETAL: Denies back pain, joint pain, or myalgia. NEUROLOGIC: Denies headache, numbness, dizziness, or weakness. PSYCHIATRIC: Denies anxiety or depression. [facility] Past Medical History Medical History Depression Drug abuse History of migraine Surgical History Surgical History Hx of tonsillectomy Family History Family History Mother Family history non-contributory Social History Social History (Updated 10/01/21 @ 17:50 by VIKKI WhitfieldP, ) Smoking status: Current every day smoker Alcohol intake: never Substance use: current Substance use type: marijuana, crack/cocaine and amphetamines Living arrangements: with family Gender identity (if verbalized by the patient): Male Sexual Orientation (if Verbalized by the Patient): Straight or Heterosexual Spiritual care concerns: No Exam Narrative: GENERAL: Well-appearing, well-nourished, and in no acute distress. HEAD: Normocephalic, atraumatic. EYES: PERRLA and EOMI. ENT: Nares clear, no rhinorrhea or epistaxis. Mucous membranes moist. Oropharynx without tonsillar hypertrophy exudate or other lesions. Bilateral TMs pearly aden nonbulging NECK: Supple. No adenopathy or masses. No carotid bruits or JVD CHEST: Clear to auscultation. No respiratory distress. No wheezes rales or rhonchi HEART: Regular rate and rhythm. No murmur heard. Normal peripheral pulses. ABDOMEN: Soft, nontender, nondistended, normal active bowel sounds. EXTREMITIES: Normal range of motion. No edema. SKIN: Multiple scarred lesions to bilateral upper extremities. She has concealer over several of these areas. There is an approximately 8 x 4 cm area of erythema with induration to the right side of the tempo
[2021-10-01] MEDS: SODIUM CHLORIDE 0.9% IV 1,000 ML 999 ML IV CONT (18:38)
[2021-10-01 18:40] LABS: Basophils Percent Auto 0.2 % (0.2-1.2); Eosinophils Absolute Auto 0.1 K/mm3 (0-0.3); Eosinophils Percent Auto 0.3 % (0-4.4); Hematocrit 34.8 % (37.0-47.0); Hemoglobin 11.2 g/dL (12.0-15.0); Immature Granulocyte Absolute 0.12 K/mm3 (0.00-0.031); Immature Granulocyte Percent A 0.7 % (0-0.5); Lymphocytes Absolute Auto 2.12 K/mm3 (0.9-3.2); Lymphocytes Percent Auto 11.6 % (18.3-44.2); Mean Corpuscular HGB Conc 32.2 g/dl (32-36); Mean Corpuscular Hemoglobin 26.8 pg (26-34); Mean Corpuscular Volume 83.3 fl (80-100); Mean Platelet Volume 10.9 fl (7.4-10.4); Monocytes Percent Auto 5.5 % (2.6-8.5); Neutrophils Absolute Auto 14.9 K/mm3 (1.3-6.7); Neutrophils Percent Auto 81.7 % (45.5-73.1); Platelet Count Result 372 k/mm3 (150-375); Red Blood Count 4.18 M/mm3 (4.2-5.4); Red Cell Distribution Width 14.6 % (11.5-14.5); White Blood Count 18.3 K/mm3 (4.5-10.0)
[2021-10-01 18:50] LABS: Lactic Acid Reflex 1.1 mmol/L (0.7-2.1)
[2021-10-01 18:51] LABS: Alanine Aminotransferase 21 U/L (4-35); Albumin Level 4.8 g/dL (3.5-5.1); Alkaline Phosphatase 77 U/L (38-126); Anion Gap 13 mmol/L (8-16); Aspartate Amino Transferase 29 U/L (14-36); Bilirubin,Total 0.6 mg/dL (0.2-1.3); Blood Urea Nitrogen 10 mg/dL (7-17); Calcium 9.3 mg/dL (8.4-10.2); Carbon Dioxide 24 mmol/L (22-30); Chloride 100 mmol/L (98-107); Estimated CRCL calculation 106 ml/min; Estimated Glomerular Filt Rate > 60; Glucose 99 mg/dL (65-110); Potassium 3.8 mmol/L (3.4-5.0); Sodium 137 mmol/L (137-145)
[2021-10-01 18:54] LABS: Add Urine Microscopic? YES; Appearance Urine Cloudy (Clear); Bacteria Urine Trace /hpf; Bilirubin Urine Negative (Negative); Blood Urine Negative (Negative); Color Urine Yellow (Yellow); Glucose Urine UA Negative (Negative); Ketones Urine Negative (Negative); Leukocyte Esterase Ur 2+ LEU/UL (Negative); Mucus Urine Rare /lpf; Nitrate Urine Negative (Negative); Protein Urine Negative (Negative); Specific Grav Ur 1.024 (1.001-1.035); Squamous Epithelial Cell Urine Many /hpf (Few); Urobilinogen Urine Negative mg/dL (<2.0); WBC Urine 31-50 /hpf
[2021-10-01 19:14] LABS: Prothrombin Time 12.3 Seconds (11.1-14.7)
[2021-10-01 20:14] LABS: SARS-CoV-2 RNA PCR Positive
[2021-10-01 20:39] LABS: Barbiturate Screen Urine Negative (Negative); Benzodiazepines Screen Urine Negative (Negative)
[2021-10-01] MEDS: KETOROLAC 30 MG/ML VIAL (*BKC) IV PUSH (20:44)
[2021-10-01 21:06] LABS: Amphetamine Screen Urine Positive (Negative); Cannabinoid Screen Urine Negative (Negative); Cocaine Screen Urine Negative (Negative); Methadone Screen Urine Negative (Negative); Opiate Screen Urine Negative (Negative); Phencyclidine Screen Urine Negative (Negative)
--- NOTE | 2021-10-01 22:08 | PM.IMHP ---
H&P: HPI History of Present Illness Date/Time: 10/01/21 21:40 Chief Complaint: Facial wound and redness Narrative: 31-year-old female with past medical history of his tobacco use, methamphetamine use and binge drinking who presented to the ER via private vehicle due to right facial wound with associated redness and swelling. Patient is a fair historian and gives variable accounts of her symptoms. The patient reports that she was shaving her right scientology region in her electric shaver was not working so she went over the area with a razor a couple of days ago. Yesterday she noticed some irritation and a pimple. Today she woke from sleep with significant swelling, pain and some green to yellow crusting drainage to her right scientology and lateral cheek. She had had a similar infection to this back in July and was sent home from the ER with oral antibiotics. Today she applied Prid salve to the pimple. She also noticed some thick clear discharge from her eye and right lower eyelid swelling. However she has had come to the ER when her pain continued to worsen and she developed worsening swelling in her face extending down into her neck. She does report that her throat feels a little bit sore when she swallows but she is not having any difficulty swallowing. She denies any shortness of breath, cough or congestion. She reports that her pain is a 7/10 in intensity and is worse with palpation. She does not have any trismus. She did note having difficulty with some intermittent spots in her vision today. She thought this may be due to some drainage from her eye. She is not having any scleral icterus or significant drainage noted at the time of my evaluation. The patient denied any fevers or chills but was febrile on presentation to the ER with temperature of 100.3?. She was also tachycardic with heart rate in the 120s. She does have a history of drug abuse. She has smoked methamphetamines on and off since she was 19 years old. She reported that she was clean from methamphetamines for 7 years but started using again 1 year ago. Her last use of meth was 4 days ago. She denies ever having used IV drugs. She last used cocaine yesterday. She reports that she rarely uses cocaine. She also reports rare marijuana use. On exam both I and the ER provider were unable to express any pus from the area of infection. Patient had a COVID swab performed for bed placement. Her COVID swab came back positive. She has not vaccinated against COVID. She does not have any known ill contacts. She denies any cough, congestion, shortness of breath, fevers or chills. She denies any rhinorrhea or nasal congestion. She denies any loss of sense of taste or smell. Review of Systems Review of Systems: 12 systems were reviewed with pertinent positives and negatives per HPI. Except as documented in the HPI, all other systems were reviewed and are negative. [facility] Past Medical History Medical History Depression Drug abuse History of migraine Surgical History Surgical History Hx of tonsillectomy Family History Family History (Updated 10/01/21 @ 22:10 by Ramonita Prabhakar DO) Mother Healthy female Grandparent Breast cancer Social History Social History (Updated 10/01/21 @ 22:14 by Ramonita Prabhakar DO) Social History: The patient and her 6-year-old daughter recently moved back in with her mother. 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 She has smoked half pack of cigarettes per day since she was 18. She smokes methamphetamines on a frequent basis. She occasionally smokes marijuana. She rarely uses cocaine. She denies any IV drug use. She binge drinks every other weekend or so. Surrogate decision maker: Mother Smoking packs per day: 0.5 Smoking cigarettes per day: 1
[2021-10-02] VITALS (8 sets, daily range): BP systolic 113–137; BP diastolic 64–79; PULSE 98–126; RESP 17–20; TEMP 35.6–37; O2SAT 100
[2021-10-02] MEDS: NICOTINE (*PBKC) 4 MG GUM PO (00:06)
[2021-10-02] MEDS: SODIUM CHLORIDE 0.9% IV 1,000 ML 125 ML IV CONT ×2 (00:06→14:58)
[2021-10-02] MEDS: ENOXAPARIN 40 MG/0.4 ML SYRINGE SUB-Q (08:32)
[2021-10-02 09:37] LABS: Basophils Percent Auto 0.2 % (0.2-1.2); Eosinophils Absolute Auto 0.1 K/mm3 (0-0.3); Eosinophils Percent Auto 0.9 % (0-4.4); Hematocrit 30.2 % (37.0-47.0); Hemoglobin 9.6 g/dL (12.0-15.0); Immature Granulocyte Absolute 0.05 K/mm3 (0.00-0.031); Immature Granulocyte Percent A 0.4 % (0-0.5); Lymphocytes Absolute Auto 1.84 K/mm3 (0.9-3.2); Lymphocytes Percent Auto 14.1 % (18.3-44.2); Mean Corpuscular HGB Conc 31.8 g/dl (32-36); Mean Corpuscular Hemoglobin 26.9 pg (26-34); Mean Corpuscular Volume 84.6 fl (80-100); Mean Platelet Volume 10.8 fl (7.4-10.4); Monocytes Absolute Auto 0.9 K/mm3 (0.1-0.6); Monocytes Percent Auto 7.1 % (2.6-8.5); Neutrophils Absolute Auto 10.1 K/mm3 (1.3-6.7); Neutrophils Percent Auto 77.3 % (45.5-73.1); Platelet Count Result 294 k/mm3 (150-375); Red Blood Count 3.57 M/mm3 (4.2-5.4); Red Cell Distribution Width 14.7 % (11.5-14.5)
[2021-10-02 09:49] LABS: Anion Gap 5 mmol/L (8-16); Blood Urea Nitrogen 10 mg/dL (7-17); Calcium 8.3 mg/dL (8.4-10.2); Carbon Dioxide 28 mmol/L (22-30); Chloride 105 mmol/L (98-107); Estimated CRCL calculation 126 ml/min; Estimated Glomerular Filt Rate > 60; Glucose 106 mg/dL (65-110); Potassium 3.5 mmol/L (3.4-5.0); Sodium 138 mmol/L (137-145)
[2021-10-02] MEDS: ACETAMINOPHEN 325 MG TABLET 650 MG PO (11:12)
[2021-10-02] MEDS: HYDROcodone/acetaminophen (*CRX) 5-325 MG TABLET 1 TAB PO ×2 (14:54→23:03)
--- NOTE | 2021-10-02 16:03 | P.PNIM_ITS ---
Progress Note: A&P Assessment and Plan (1) Sepsis: Qualifiers: Sepsis type: sepsis due to unspecified organism Sepsis acute organ dysfunction status: without acute organ dysfunction Qualified Code(s): A41.9 - Sepsis, unspecified organism Code(s): A41.9 - Sepsis, unspecified organism Status: Acute Assessment and Plan: Secondary to facial cellulitis. Septic evident by fever, tachycardia, leukocytosis. * Blood and wound cultures are pending * Continue vancomycin and ceftriaxone * Leukocytosis is improving. Patient is afebrile today (2) Cellulitis of face: Code(s): L03.211 - Cellulitis of face Status: Acute Assessment and Plan: Secondary to shaving vs skin picking secondary to methamphetamine use, likely combination of the two * CT scan showed cellulitis without associated abscess * Noted by previous provider to have yellow crusting, not appreciated on my exam today * Continue vancomycin and Rocephin as above while awaiting cultures * Supportive care. Analgesics available as needed (3) COVID: Code(s): U07.1 - COVID-19 Status: Acute Assessment and Plan: Patient incidentally found to be COVID positive without any evidence of pneumonia or symptomatology * Isolation precautions implemented * No COVID-19 specific treatment at this time as she is asymptomatic and has no oxygen requirement * Supportive care as needed (4) Drug abuse: Code(s): F19.10 - Other psychoactive substance abuse, uncomplicated Status: Acute Assessment and Plan: Patient smoked methamphetamine on a frequent basis * On admission was reported to be generally and restless. Ativan provided p.r.n. for anxiety * Drug cessation was discussed with the patient * No evidence of withdrawal symptoms on my exam. (5) Tobacco abuse disorder: Code(s): Z72.0 - Tobacco use Status: Acute Assessment and Plan: Patient does endorse cigarette cravings * Nicotine gum as needed * Continues reinforce tobacco cessation (6) Abnormal urinalysis: Code(s): R82.90 - Unspecified abnormal findings in urine Status: Acute Assessment and Plan: UA abnormal however with many squamous cells, likely contamination. Patient denies urinary symptoms. * Urine culture is pending. * Remains on IV antibiotics for cellulitis. (7) Sinus tachycardia: Code(s): R00.0 - Tachycardia, unspecified Status: Acute Assessment and Plan: Patient tachycardic ranging from 105-125 * Seems to be slowly improving * Likely related to pain and anxiety * EKG reviewed; continue to monitor Subjective Date/time seen: General: --, -year-old -male, - , comfortable, NARD Neuro: awake, alert and oriented x__, speech clear, no focal neuro deficits noted HEENMT: normocephalic, atraumatic, EOMI, sclerae anicteric, moist oral mucosa Respiratory: clear to auscultation bilaterally, nonlabored breathing Cardio: regular rate, regular rhythm with S1-S2 Abdomen: nondistended, normoactive bowel sounds, soft, nontender to palpation, no rigidity or guarding : Extremities: no edema, erythema, or tenderness to palpation, DP pulses 2+ bilaterally Skin: no rashes or lesions, warm and dry Psych: appropriate mood and affect, judgment and insight [id number] 16:03 Interval history: Date of service: 10/02/2021 Cherie Cabello is a 31-year-old female with a history of tobacco abuse, methamphetamine abuse, migraines, depression who is seen in follow-up
--- NOTE | 2021-10-02 16:03 | PM.IMPN ---
Progress Note: A&P Assessment and Plan (1) Sepsis: Qualifiers: Sepsis type: sepsis due to unspecified organism Sepsis acute organ dysfunction status: without acute organ dysfunction Qualified Code(s): A41.9 - Sepsis, unspecified organism Code(s): A41.9 - Sepsis, unspecified organism Status: Acute Assessment and Plan: Secondary to facial cellulitis. Septic evident by fever, tachycardia, leukocytosis. Blood and wound cultures are pending Continue vancomycin and ceftriaxone Leukocytosis is improving. Patient is afebrile today (2) Cellulitis of face: Code(s): L03.211 - Cellulitis of face Status: Acute Assessment and Plan: Secondary to shaving vs skin picking secondary to methamphetamine use, likely combination of the two CT scan showed cellulitis without associated abscess Noted by previous provider to have yellow crusting, not appreciated on my exam today Continue vancomycin and Rocephin as above while awaiting cultures Supportive care. Analgesics available as needed (3) COVID: Code(s): U07.1 - COVID-19 Status: Acute Assessment and Plan: Patient incidentally found to be COVID positive without any evidence of pneumonia or symptomatology Isolation precautions implemented No COVID-19 specific treatment at this time as she is asymptomatic and has no oxygen requirement Supportive care as needed (4) Drug abuse: Code(s): F19.10 - Other psychoactive substance abuse, uncomplicated Status: Acute Assessment and Plan: Patient smoked methamphetamine on a frequent basis On admission was reported to be generally and restless. Ativan provided p.r.n. for anxiety Drug cessation was discussed with the patient No evidence of withdrawal symptoms on my exam. (5) Tobacco abuse disorder: Code(s): Z72.0 - Tobacco use Status: Acute Assessment and Plan: Patient does endorse cigarette cravings Nicotine gum as needed Continues reinforce tobacco cessation (6) Abnormal urinalysis: Code(s): R82.90 - Unspecified abnormal findings in urine Status: Acute Assessment and Plan: UA abnormal however with many squamous cells, likely contamination. Patient denies urinary symptoms. Urine culture is pending. Remains on IV antibiotics for cellulitis. (7) Sinus tachycardia: Code(s): R00.0 - Tachycardia, unspecified Status: Acute Assessment and Plan: Patient tachycardic ranging from 105-125 Seems to be slowly improving Likely related to pain and anxiety EKG reviewed; continue to monitor Subjective Date/time seen: General: --, -year-old -male, - , comfortable, NARD Neuro: awake, alert and oriented x__, speech clear, no focal neuro deficits noted HEENMT: normocephalic, atraumatic, EOMI, sclerae anicteric, moist oral mucosa Respiratory: clear to auscultation bilaterally, nonlabored breathing Cardio: regular rate, regular rhythm with S1-S2 Abdomen: nondistended, normoactive bowel sounds, soft, nontender to palpation, no rigidity or guarding : Extremities: no edema, erythema, or tenderness to palpation, DP pulses 2+ bilaterally Skin: no rashes or lesions, warm and dry Psych: appropriate mood and affect, judgment and insight [id number] 16:03 Interval history: Date of service: 10/02/2021 Cherie Cabello is a 31-year-old female with a history of tobacco abuse, methamphetamine abuse, migraines, depression who is seen in follow-up for facial cellulitis. She is feeling a bit better today. She still has pain spread diffusely over the left face that has been up to a 9/10 today. She is extremely tender and feels swollen. Pain spreads laterally to the left ear. She also has a bit of swelling under her eye but she states this is actually improved from yesterday. She denies any visual changes including double vision or blurred vision. Reports her face feels warm to touch. Den
[2021-10-03] VITALS (8 sets, daily range): BP systolic 123–135; BP diastolic 70–86; PULSE 94–105; RESP 16–20; TEMP 36–36.8; O2SAT 99–100
[2021-10-03 06:42] LABS: Hematocrit 29.7 % (37.0-47.0); Hemoglobin 9.3 g/dL (12.0-15.0); Mean Corpuscular HGB Conc 31.3 g/dl (32-36); Mean Corpuscular Hemoglobin 26.9 pg (26-34); Mean Corpuscular Volume 85.8 fl (80-100); Mean Platelet Volume 10.7 fl (7.4-10.4); Platelet Count Result 301 k/mm3 (150-375); Red Blood Count 3.46 M/mm3 (4.2-5.4); Red Cell Distribution Width 14.7 % (11.5-14.5); White Blood Count 12.5 K/mm3 (4.5-10.0)
[2021-10-03 07:12] LABS: Vancomycin Trough 7.1 ug/mL (10.0-20.0)
[2021-10-03 07:33] LABS: Anion Gap 9 mmol/L (8-16); Blood Urea Nitrogen 4 mg/dL (7-17); CRP 5.8 mg/dL (<1.0); Calcium 8.2 mg/dL (8.4-10.2); Carbon Dioxide 24 mmol/L (22-30); Chloride 107 mmol/L (98-107); Estimated CRCL calculation 148 ml/min; Estimated Glomerular Filt Rate > 60; Glucose 124 mg/dL (65-110); Potassium 3.7 mmol/L (3.4-5.0); Sodium 140 mmol/L (137-145)
[2021-10-03] MEDS: ENOXAPARIN 40 MG/0.4 ML SYRINGE SUB-Q (10:10)
[2021-10-03] MEDS: HYDROcodone/acetaminophen (*CRX) 5-325 MG TABLET 1 TAB PO (10:13)
--- NOTE | 2021-10-03 15:27 | P.PNIM_ITS ---
Progress Note: A&P Assessment and Plan (1) Sepsis: Qualifiers: Sepsis type: sepsis due to unspecified organism Sepsis acute organ dysfunction status: without acute organ dysfunction Qualified Code(s): A41.9 - Sepsis, unspecified organism Code(s): A41.9 - Sepsis, unspecified organism Status: Acute Assessment and Plan: Secondary to facial cellulitis. Septic evident by fever, tachycardia, leukocytosis. * Preliminary blood cultures negative to date * Continue IV antibiotics as described below * Leukocytosis is improving. Patient afebrile >36 hours (2) Cellulitis of face: Code(s): L03.211 - Cellulitis of face Status: Acute Assessment and Plan: Secondary to shaving vs skin picking secondary to methamphetamine use, likely combination of the two * CT scan soft tissue neck showed cellulitis without associated abscess * Preliminary wound culture with growth of Staphylococcus aureus, await final cultures and susceptibilities * Continue vancomycin. Broaden coverage to Zosyn. * Due to increased edema and pain, will repeat CT to ensure no interval abscess development. Will proceed with contrast facial CT * Given involvement of the ear, I have called ENT Dr. Terrazas for recommendations * Supportive care. Analgesics available as needed (3) COVID: Code(s): U07.1 - COVID-19 Status: Acute Assessment and Plan: Patient incidentally found to be COVID positive without any evidence of pneumonia or symptomatology * Isolation precautions implemented * No COVID-19 specific treatment at this time as she is asymptomatic and has no oxygen requirement * Supportive care as needed (4) Drug abuse: Code(s): F19.10 - Other psychoactive substance abuse, uncomplicated Status: Acute Assessment and Plan: Patient smoked methamphetamine on a frequent basis * On admission was reported to be agitated and restless. This has resolved. Ativan provided p.r.n. for anxiety * Drug cessation was discussed with the patient * No evidence of withdrawal symptoms on my exam. (5) Tobacco abuse disorder: Code(s): Z72.0 - Tobacco use Status: Acute Assessment and Plan: Patient does endorse cigarette cravings * Nicotine gum as needed * Continues reinforce tobacco cessation (6) Abnormal urinalysis: Code(s): R82.90 - Unspecified abnormal findings in urine Status: Acute Assessment and Plan: UA abnormal however with many squamous cells, likely contamination. Patient denies urinary symptoms. * Urine culture negative (7) Sinus tachycardia: Code(s): R00.0 - Tachycardia, unspecified Status: Acute Assessment and Plan: Patient tachycardic ranging from 105-125 * Improving. * HR 95-105 today * Likely related to pain and anxiety * EKG reviewed which showed sinus tachycardia; continue to monitor Additional Plan Discussed case with my supervising physician Subjective Date/time seen: 10/03/21 15:27 Interval history: Date of service: 10/02/2021 Cherie Cabello is a 31-year-old female with a history of tobacco abuse, methamphetamine abuse, migraines, depression who is seen in follow-up for facial cellulitis. She notes no improvement today. Feels she is more swollen and states that her swelling is spreading down her neck, making it difficult for her to swallow. She also thinks that it is spreading towards her ear and states that her ear is protruding. She endorses muffled hearing and ear pain. She is able to ea
--- NOTE | 2021-10-03 15:27 | PM.IMPN ---
Progress Note: A&P Assessment and Plan (1) Sepsis: Qualifiers: Sepsis type: sepsis due to unspecified organism Sepsis acute organ dysfunction status: without acute organ dysfunction Qualified Code(s): A41.9 - Sepsis, unspecified organism Code(s): A41.9 - Sepsis, unspecified organism Status: Acute Assessment and Plan: Secondary to facial cellulitis. Septic evident by fever, tachycardia, leukocytosis. Preliminary blood cultures negative to date Continue IV antibiotics as described below Leukocytosis is improving. Patient afebrile >36 hours (2) Cellulitis of face: Code(s): L03.211 - Cellulitis of face Status: Acute Assessment and Plan: Secondary to shaving vs skin picking secondary to methamphetamine use, likely combination of the two CT scan soft tissue neck showed cellulitis without associated abscess Preliminary wound culture with growth of Staphylococcus aureus, await final cultures and susceptibilities Continue vancomycin. Broaden coverage to Zosyn. Due to increased edema and pain, will repeat CT to ensure no interval abscess development. Will proceed with contrast facial CT Given involvement of the ear, I have called ENT Dr. Terrazas for recommendations Supportive care. Analgesics available as needed (3) COVID: Code(s): U07.1 - COVID-19 Status: Acute Assessment and Plan: Patient incidentally found to be COVID positive without any evidence of pneumonia or symptomatology Isolation precautions implemented No COVID-19 specific treatment at this time as she is asymptomatic and has no oxygen requirement Supportive care as needed (4) Drug abuse: Code(s): F19.10 - Other psychoactive substance abuse, uncomplicated Status: Acute Assessment and Plan: Patient smoked methamphetamine on a frequent basis On admission was reported to be agitated and restless. This has resolved. Ativan provided p.r.n. for anxiety Drug cessation was discussed with the patient No evidence of withdrawal symptoms on my exam. (5) Tobacco abuse disorder: Code(s): Z72.0 - Tobacco use Status: Acute Assessment and Plan: Patient does endorse cigarette cravings Nicotine gum as needed Continues reinforce tobacco cessation (6) Abnormal urinalysis: Code(s): R82.90 - Unspecified abnormal findings in urine Status: Acute Assessment and Plan: UA abnormal however with many squamous cells, likely contamination. Patient denies urinary symptoms. Urine culture negative (7) Sinus tachycardia: Code(s): R00.0 - Tachycardia, unspecified Status: Acute Assessment and Plan: Patient tachycardic ranging from 105-125 Improving. HR 95-105 today Likely related to pain and anxiety EKG reviewed which showed sinus tachycardia; continue to monitor Additional Plan Discussed case with my supervising physician Subjective Date/time seen: 10/03/21 15:27 Interval history: Date of service: 10/02/2021 Cherie Cabello is a 31-year-old female with a history of tobacco abuse, methamphetamine abuse, migraines, depression who is seen in follow-up for facial cellulitis. She notes no improvement today. Feels she is more swollen and states that her swelling is spreading down her neck, making it difficult for her to swallow. She also thinks that it is spreading towards her ear and states that her ear is protruding. She endorses muffled hearing and ear pain. She is able to eat, though states it is difficult for her to chew and she is having to chew on her left side only. Feels that her swelling below her left eye is improved. Continues to deny visual changes including blurred vision or double vision. She denies nausea, vomiting, fever, chills, sweats. No drainage from the wound. She states the left side of her face feels very puffy. Denies shortness breath, cough, chest pain, palpitations, dizziness, lighth
[2021-10-03] MEDS: LIDOCAINE HCL 1% LOCAL INJ 20 ML VIAL 3 ML INFILTRATE (18:10)
[2021-10-03] MEDS: SACCHAROMYCES BOULARDII 250 MG CAPSULE PO (18:26)
--- NOTE | 2021-10-03 18:41 | WPDPROCEDUR ---
Procedures Abscess I/D Site: face Side (if applicable): right Anesthetic used: lidocaine 1% Technique: needle aspiration, incised with #11 blade and probed loculations Amount of fluid (mL): 5 Irrigation: No Packing used?: iodoform Comments: Consent obtained, large right sided facial abscess, 1cc of lidocaine applied, opened with 11 blade approximately 1cm, opened probed with blunt dissection, copius amounts of purulence expressed. Packed with a large amount 6 inches or so of 1/4 inch packing
[2021-10-03] MEDS: traMADol HCL (*CRX) 50 MG TABLET PO (18:45)
--- NOTE | 2021-10-03 18:46 | WPDCN ---
Assessment and Plan Assessment and plan (1) Facial abscess: Code(s): L02.01 - Cutaneous abscess of face Status: Acute Assessment and Plan: S/p I and D of large right sided facial abscess. Change packing daily, 6 to 10 inches is reasonable to try. Wean abx per culture, warm compresses, pressure when awake, call with any questions, . Initial abx may have been appropriate, just not soon enough to prevent abscess. HPI Data of Consult Date/Time: 10/03/21 18:46 Requesting Physician: Adelia Walter PA-C Primary Care Provider: Avery Rosenbaum M.D. Consult Narrative Narrative: Cherie Cabello is a 31 year old female with right sided facial infection. Per my read, non contrasted ct possible abscess just deep to skin. Report of improving vitals and wbc, worsening appearance and symptoms today. PMFSH Past Medical History Medical History Depression Drug abuse History of migraine Surgical History Surgical History Hx of tonsillectomy Family History Family History (Updated 10/01/21 @ 22:10 by Ramonita Prabhakar DO) Mother Healthy female Grandparent Breast cancer Social History Social History (Updated 10/01/21 @ 22:14 by Ramonita Prabhakar DO) Social History: The patient and her 6-year-old daughter recently moved back in with her mother. 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 She has smoked half pack of cigarettes per day since she was 18. She smokes methamphetamines on a frequent basis. She occasionally smokes marijuana. She rarely uses cocaine. She denies any IV drug use. She binge drinks every other weekend or so. Surrogate decision maker: Mother Smoking packs per day: 0.5 Smoking cigarettes per day: 10.0 Years smoked: 10 Smoking pack-years: 5.00 Smoking status: Light tobacco smoker Tobacco type: cigarettes Second hand tobacco smoke exposure: No Alcohol intake: current Drinks per week: 5 Substance use: current Substance use type: marijuana, crack/cocaine, methamphetamine and prescription drug Last use: last weekend Living arrangements: with family Gender identity (if verbalized by the patient): Male Sexual Orientation (if Verbalized by the Patient): Straight or Heterosexual Spiritual care concerns: No Meds Home Medications and Allergies Home Medications Medication Instructions Recorded Confirmed Type No Home Medications 10/01/21 10/01/21 History Allergies Allergy/AdvReac Type Severity Reaction Status Date / Time No Known Allergies Allergy Mild Verified 08/18/21 13:13 Vital Signs Vital Signs - 24 hr 10/02/21 20:00 10/03/21 00:00 10/03/21 00:42 Temperature 36.5 C 36.7 C 36.7 C Pulse Rate 105 H 105 H 105 H Respiratory Rate 20 20 20 Blood Pressure 137/75 132/76 132/76 Pulse Oximetry 100 100 100 10/03/21 04:00 10/03/21 04:42 10/03/21 08:00 Temperature 36.0 C L 36.0 C L 36.2 C L Pulse Rate 103 H 103 H 94 Respiratory Rate 18 18 16 Blood Pressure 127/70 127/70 127/86 Pulse Oximetry 99 99 100 10/03/21 12:00 10/03/21 16:00 Temperature 36.1 C L 36.3 C L Pulse Rate 100 100 Respiratory Rate 17 18 Blood Pressure 123/70 135/79 Pulse Oximetry 99 99 Exam HENMT: Other: large 5x6cm right sided facial abscess. Results Labs CBC & Chem 7: 10/03/21 06:14 10/03/21 06:14 Labs: Short CBC 10/03/21 Range/Units 06:14 WBC 12.5 H (4.5-10.0) K/mm3 Hgb 9.3 L (12.0-15.0) g/dL Hct 29.7 L (37.0-47.0) % Plt Count 301 (150-375) k/mm3 BMP 10/03/21 06:14 Sodium 140 Potassium 3.7 Chloride 107 Carbon Dioxide 24 BUN 4 L D Creatinine 0.50 L Glucose 124 H Calcium 8.2 L
[2021-10-04] VITALS (7 sets, daily range): BP systolic 117–131; BP diastolic 70–93; PULSE 87–99; RESP 12–18; TEMP 35.9–37.4; O2SAT 97–100
[2021-10-04] MEDS: ACETAMINOPHEN 325 MG TABLET 650 MG PO (01:13)
[2021-10-04 06:46] LABS: Hematocrit 30.6 % (37.0-47.0); Hemoglobin 9.7 g/dL (12.0-15.0); Mean Corpuscular HGB Conc 31.7 g/dl (32-36); Mean Corpuscular Hemoglobin 26.9 pg (26-34); Mean Corpuscular Volume 84.8 fl (80-100); Mean Platelet Volume 10.5 fl (7.4-10.4); Platelet Count Result 340 k/mm3 (150-375); Red Blood Count 3.61 M/mm3 (4.2-5.4); Red Cell Distribution Width 14.4 % (11.5-14.5); White Blood Count 9.3 K/mm3 (4.5-10.0)
[2021-10-04 07:01] LABS: Anion Gap 8 mmol/L (8-16); Blood Urea Nitrogen 4 mg/dL (7-17); CRP 2.7 mg/dL (<1.0); Calcium 8.7 mg/dL (8.4-10.2); Carbon Dioxide 29 mmol/L (22-30); Chloride 104 mmol/L (98-107); Estimated CRCL calculation 109 ml/min; Estimated Glomerular Filt Rate > 60; Glucose 106 mg/dL (65-110); Potassium 3.7 mmol/L (3.4-5.0); Sodium 141 mmol/L (137-145)
[2021-10-04] MEDS: ENOXAPARIN 40 MG/0.4 ML SYRINGE SUB-Q (08:59)
[2021-10-04] MEDS: SACCHAROMYCES BOULARDII 250 MG CAPSULE PO ×2 (08:59→17:04)
--- NOTE | 2021-10-04 10:44 | P.PNIM_ITS ---
Progress Note: A&P Assessment and Plan (1) Sepsis: Qualifiers: Sepsis type: sepsis due to unspecified organism Sepsis acute organ dysfunction status: without acute organ dysfunction Qualified Code(s): A41.9 - Sepsis, unspecified organism Code(s): A41.9 - Sepsis, unspecified organism Status: Acute Assessment and Plan: Secondary to facial cellulitis and abscess. Septic evident by fever, tachycardia, leukocytosis. * Preliminary blood cultures negative to date * Continue IV antibiotics as described below * Leukocytosis resolved. Patient afebrile >48 hours (2) Facial abscess: Code(s): L02.01 - Cutaneous abscess of face Status: Acute Assessment and Plan: Secondary to shaving vs skin picking secondary to methamphetamine use, likely combination of the two * CT scan soft tissue neck showed cellulitis without associated abscess * Initial wound culture with growth of MRSA for which vancomycin is being continued * Given increase in edema and pain yesterday, antibiotics broadened and started on Zosyn * Repeat facial CT on 10/03/2019 to showed unchanged cellulitis without evidence of abscess * Seen in consultation by ENT Dr. Terrazas who did incision and drainage of right facial abscess which drained copious amounts of purulent fluid and was subsequently packed * Continue with packing changes daily * Repeat culture collected from I&D on 10/03, will await further information from culture and narrow antibiotics as indicated * Supportive care. Warm compresses. Analgesics available as needed (3) Cellulitis of face: Code(s): L03.211 - Cellulitis of face Status: Acute Assessment and Plan: Plan as above (4) COVID: Code(s): U07.1 - COVID-19 Status: Acute Assessment and Plan: Patient incidentally found to be COVID positive without any evidence of pneumonia or symptomatology * Isolation precautions implemented * No COVID-19 specific treatment at this time as she is asymptomatic and has no oxygen requirement * Supportive care as needed (5) Drug abuse: Code(s): F19.10 - Other psychoactive substance abuse, uncomplicated Status: Acute Assessment and Plan: Patient smoked methamphetamine on a frequent basis * On admission was reported to be agitated and restless. This has resolved. Ativan provided p.r.n. for anxiety, which she has not required * Drug cessation was discussed with the patient * No evidence of withdrawal symptoms on my exam. (6) Tobacco abuse disorder: Code(s): Z72.0 - Tobacco use Status: Acute Assessment and Plan: Patient does endorse cigarette cravings * Nicotine gum as needed * Continues reinforce tobacco cessation (7) Abnormal urinalysis: Code(s): R82.90 - Unspecified abnormal findings in urine Status: Acute Assessment and Plan: UA abnormal however with many squamous cells, likely contamination. Patient denies urinary symptoms. * Urine culture negative (8) Sinus tachycardia: Code(s): R00.0 - Tachycardia, unspecified Status: Acute Assessment and Plan: Resolved. * Likely related to acute infection, pain, and anxiety * Heart rate now ranging from 85-100 * EKG reviewed which showed sinus tachycardia; continue to monitor Subjective Date/time seen: 10/04/21 10:44 Interval history: Date of service: 10/04/2021 Cherie Cabello is a 31-year-old female with a history of tobacco abuse, methamphetamine
--- NOTE | 2021-10-04 10:44 | PM.IMPN ---
Progress Note: A&P Assessment and Plan (1) Sepsis: Qualifiers: Sepsis type: sepsis due to unspecified organism Sepsis acute organ dysfunction status: without acute organ dysfunction Qualified Code(s): A41.9 - Sepsis, unspecified organism Code(s): A41.9 - Sepsis, unspecified organism Status: Acute Assessment and Plan: Secondary to facial cellulitis and abscess. Septic evident by fever, tachycardia, leukocytosis. Preliminary blood cultures negative to date Continue IV antibiotics as described below Leukocytosis resolved. Patient afebrile >48 hours (2) Facial abscess: Code(s): L02.01 - Cutaneous abscess of face Status: Acute Assessment and Plan: Secondary to shaving vs skin picking secondary to methamphetamine use, likely combination of the two CT scan soft tissue neck showed cellulitis without associated abscess Initial wound culture with growth of MRSA for which vancomycin is being continued Given increase in edema and pain yesterday, antibiotics broadened and started on Zosyn Repeat facial CT on 10/03/2019 to showed unchanged cellulitis without evidence of abscess Seen in consultation by ENT Dr. Terrazas who did incision and drainage of right facial abscess which drained copious amounts of purulent fluid and was subsequently packed Continue with packing changes daily Repeat culture collected from I&D on 10/03, will await further information from culture and narrow antibiotics as indicated Supportive care. Warm compresses. Analgesics available as needed (3) Cellulitis of face: Code(s): L03.211 - Cellulitis of face Status: Acute Assessment and Plan: Plan as above (4) COVID: Code(s): U07.1 - COVID-19 Status: Acute Assessment and Plan: Patient incidentally found to be COVID positive without any evidence of pneumonia or symptomatology Isolation precautions implemented No COVID-19 specific treatment at this time as she is asymptomatic and has no oxygen requirement Supportive care as needed (5) Drug abuse: Code(s): F19.10 - Other psychoactive substance abuse, uncomplicated Status: Acute Assessment and Plan: Patient smoked methamphetamine on a frequent basis On admission was reported to be agitated and restless. This has resolved. Ativan provided p.r.n. for anxiety, which she has not required Drug cessation was discussed with the patient No evidence of withdrawal symptoms on my exam. (6) Tobacco abuse disorder: Code(s): Z72.0 - Tobacco use Status: Acute Assessment and Plan: Patient does endorse cigarette cravings Nicotine gum as needed Continues reinforce tobacco cessation (7) Abnormal urinalysis: Code(s): R82.90 - Unspecified abnormal findings in urine Status: Acute Assessment and Plan: UA abnormal however with many squamous cells, likely contamination. Patient denies urinary symptoms. Urine culture negative (8) Sinus tachycardia: Code(s): R00.0 - Tachycardia, unspecified Status: Acute Assessment and Plan: Resolved. Likely related to acute infection, pain, and anxiety Heart rate now ranging from 85-100 EKG reviewed which showed sinus tachycardia; continue to monitor Subjective Date/time seen: 10/04/21 10:44 Interval history: Date of service: 10/04/2021 Cherie Cabello is a 31-year-old female with a history of tobacco abuse, methamphetamine abuse, migraines, depression who is seen in follow-up for facial cellulitis and abscess. She is still having discomfort today but notes some mild improvement. Feels her druze is less swollen but still endorses swelling in the ear and the neck causing ear pain and difficulty swallowing. She has jaw fatigue she attempts to chew. She has not been eating very much but she states this is because she does not like the food not because she cannot tolerate her diet. No issues man
--- NOTE | 2021-10-04 14:44 | PC.NURSE ---
On 10/04/21, the student, Cristina Ramirez, provided care and completed [facility] documentation on this patient. I have reviewed the student's documentation and agree with the findings.
[2021-10-04] MEDS: traMADol HCL (*CRX) 50 MG TABLET PO (18:15)
[2021-10-04] MEDS: ONDANSETRON INJ 4 MG/2 ML VIAL IV PUSH ×2 (18:15→21:48)
[2021-10-05] VITALS: BP 127/73; PULSE 92; RESP 18; TEMP 36.2; O2SAT 100
[2021-10-05 02:42] LABS: Estimated CRCL calculation 50 ml/min; Estimated Glomerular Filt Rate 38
[2021-10-05 04:00] VITALS: BP 135/80; PULSE 97; RESP 18; TEMP 36.3; O2SAT 98
[2021-10-05 08:00] VITALS: BP 128/79; PULSE 96; RESP 18; TEMP 37.1; O2SAT 98
[2021-10-05] MEDS: ENOXAPARIN 40 MG/0.4 ML SYRINGE SUB-Q (09:09)
[2021-10-05] MEDS: SACCHAROMYCES BOULARDII 250 MG CAPSULE PO ×2 (09:09→17:26)
[2021-10-05 12:00] VITALS: BP 121/84; PULSE 102; RESP 18; TEMP 36.2; O2SAT 100
[2021-10-05] MEDS: SODIUM CHLORIDE 0.9% IV 1,000 ML 90 ML IV CONT (12:26)
[2021-10-05 14:48] LABS: Vancomycin Trough 18.5 ug/mL (10.0-20.0)
[2021-10-05 16:00] VITALS: BP 140/80; PULSE 97; RESP 18; TEMP 35.7; O2SAT 99
--- NOTE | 2021-10-05 16:58 | P.PNIM_ITS ---
Progress Note: A&P Assessment and Plan (1) Sepsis: Qualifiers: Sepsis type: sepsis due to unspecified organism Sepsis acute organ dysfunction status: without acute organ dysfunction Qualified Code(s): A41.9 - Sepsis, unspecified organism Code(s): A41.9 - Sepsis, unspecified organism Status: Acute Assessment and Plan: Secondary to facial cellulitis and abscess. Septic evident by fever, tachycardia, leukocytosis. Lactic 1.1 * Preliminary blood cultures negative to date * Continue IV antibiotics as described below * Leukocytosis resolved. Patient afebrile >48 hours (2) Facial abscess: Code(s): L02.01 - Cutaneous abscess of face Status: Acute Assessment and Plan: Secondary to shaving vs skin picking secondary to methamphetamine use, likely combination of the two * CT scan soft tissue neck showed cellulitis without associated abscess * Initial wound culture with growth of MRSA for which vancomycin is being cont inued * Zosyn added on 10/03/2021 given increase in pain and edema * Repeat facial CT on 10/03/2019 to showed unchanged cellulitis without evidence of abscess * Seen in consultation by ENT Dr. Terrazas who did incision and drainage of right facial abscess on 10/03 which drained copious amounts of purulent fluid and was subsequently packed * Continue with packing changes daily * Repeat culture collected from I&D on 10/03 with growth of Staph aureus, susceptibility reports pending. Suspect MRSA based on initial wound culture * Supportive care. Warm compresses. Analgesics available as needed * In light of negative blood cultures and S aureus from both wound cultures, will discontinue IV Zosyn and continue with vancomycin monotherapy. Patient has acute kidney injury which may be related to Zosyn and vancomycin combination therapy. (3) Cellulitis of face: Code(s): L03.211 - Cellulitis of face Status: Acute Assessment and Plan: Plan as above (4) COVID: Code(s): U07.1 - COVID-19 Status: Acute Assessment and Plan: Patient incidentally found to be COVID positive without any evidence of pne umonia or symptomatology * Isolation precautions implemented * No COVID-19 specific treatment at this time as she is asymptomatic and has no oxygen requirement * Supportive care as needed * Now complaining of generalized body aches and malaise, likely related to COVID-19. Continue to monitor symptoms (5) Acute kidney injury: Code(s): N17.9 - Acute kidney failure, unspecified Status: Acute Assessment and Plan: Baseline creatinine 0.5-0.7 * Creatinine increased to 1.6 today * Possibly related to combination therapy with vancomycin and Zosyn, which has been discontinued * No evidence of urinary retention * Patient appears euvolemic on exam, however will initiate IV fluids in the event this is prerenal in etiology * Hopeful improvement tomorrow. Will plan for renal ultrasound if no improvement in consider Nephrology consultation (6) Drug abuse: Code(s): F19.10 - Other psychoactive substance abuse, uncomplicated Status: Acute Assessment and Plan: Patient smokes methamphetamine on a frequent basis * On admission was reported to be agitated and restless. This has resolved. Ativan provided p.r.n. for anxiety, which she has not required * Drug cessation was discussed with the patient * No evidence of withdrawal symptoms on my exam. (7) Tobacco abuse disorder: Code(s): Z72.0 - Tobacco use Status: Acute
--- NOTE | 2021-10-05 16:58 | PM.IMPN ---
Progress Note: A&P Assessment and Plan (1) Sepsis: Qualifiers: Sepsis type: sepsis due to unspecified organism Sepsis acute organ dysfunction status: without acute organ dysfunction Qualified Code(s): A41.9 - Sepsis, unspecified organism Code(s): A41.9 - Sepsis, unspecified organism Status: Acute Assessment and Plan: Secondary to facial cellulitis and abscess. Septic evident by fever, tachycardia, leukocytosis. Lactic 1.1 Preliminary blood cultures negative to date Continue IV antibiotics as described below Leukocytosis resolved. Patient afebrile >48 hours (2) Facial abscess: Code(s): L02.01 - Cutaneous abscess of face Status: Acute Assessment and Plan: Secondary to shaving vs skin picking secondary to methamphetamine use, likely combination of the two CT scan soft tissue neck showed cellulitis without associated abscess Initial wound culture with growth of MRSA for which vancomycin is being continued Zosyn added on 10/03/2021 given increase in pain and edema Repeat facial CT on 10/03/2019 to showed unchanged cellulitis without evidence of abscess Seen in consultation by ENT Dr. Terrazas who did incision and drainage of right facial abscess on 10/03 which drained copious amounts of purulent fluid and was subsequently packed Continue with packing changes daily Repeat culture collected from I&D on 10/03 with growth of Staph aureus, susceptibility reports pending. Suspect MRSA based on initial wound culture Supportive care. Warm compresses. Analgesics available as needed In light of negative blood cultures and S aureus from both wound cultures, will discontinue IV Zosyn and continue with vancomycin monotherapy. Patient has acute kidney injury which may be related to Zosyn and vancomycin combination therapy. (3) Cellulitis of face: Code(s): L03.211 - Cellulitis of face Status: Acute Assessment and Plan: Plan as above (4) COVID: Code(s): U07.1 - COVID-19 Status: Acute Assessment and Plan: Patient incidentally found to be COVID positive without any evidence of pneumonia or symptomatology Isolation precautions implemented No COVID-19 specific treatment at this time as she is asymptomatic and has no oxygen requirement Supportive care as needed Now complaining of generalized body aches and malaise, likely related to COVID-19. Continue to monitor symptoms (5) Acute kidney injury: Code(s): N17.9 - Acute kidney failure, unspecified Status: Acute Assessment and Plan: Baseline creatinine 0.5-0.7 Creatinine increased to 1.6 today Possibly related to combination therapy with vancomycin and Zosyn, which has been discontinued No evidence of urinary retention Patient appears euvolemic on exam, however will initiate IV fluids in the event this is prerenal in etiology Hopeful improvement tomorrow. Will plan for renal ultrasound if no improvement in consider Nephrology consultation (6) Drug abuse: Code(s): F19.10 - Other psychoactive substance abuse, uncomplicated Status: Acute Assessment and Plan: Patient smokes methamphetamine on a frequent basis On admission was reported to be agitated and restless. This has resolved. Ativan provided p.r.n. for anxiety, which she has not required Drug cessation was discussed with the patient No evidence of withdrawal symptoms on my exam. (7) Tobacco abuse disorder: Code(s): Z72.0 - Tobacco use Status: Acute Assessment and Plan: Patient initially endorsed cigarette cravings Nicotine gum as needed Continues reinforce tobacco cessation (8) Abnormal urinalysis: Code(s): R82.90 - Unspecified abnormal findings in urine Status: Acute Assessment and Plan: UA abnormal however with many squamous cells, likely contamination. Patient denies urinary symptoms. Urine culture negative, no further treatment require
[2021-10-05] MEDS: ACETAMINOPHEN 325 MG TABLET 650 MG PO (17:26)
[2021-10-05] MEDS: ONDANSETRON INJ 4 MG/2 ML VIAL IV PUSH (17:27)
[2021-10-05 20:00] VITALS: BP 136/83; PULSE 86; RESP 18; TEMP 36.2; O2SAT 99
[2021-10-06] VITALS (9 sets, daily range): BP systolic 131–145; BP diastolic 75–97; PULSE 94–115; RESP 16–18; TEMP 35.7–37.1; O2SAT 97–100
[2021-10-06] MEDS: SODIUM CHLORIDE 0.9% IV 1,000 ML 90 ML IV CONT ×2 (03:28→17:33)
[2021-10-06 06:20] LABS: Hematocrit 30.7 % (37.0-47.0); Hemoglobin 9.9 g/dL (12.0-15.0); Mean Corpuscular HGB Conc 32.2 g/dl (32-36); Mean Corpuscular Hemoglobin 26.5 pg (26-34); Mean Corpuscular Volume 82.1 fl (80-100); Platelet Count Result 364 k/mm3 (150-375); Red Blood Count 3.74 M/mm3 (4.2-5.4); Red Cell Distribution Width 14.3 % (11.5-14.5); White Blood Count 9.9 K/mm3 (4.5-10.0)
[2021-10-06 06:34] LABS: Anion Gap 9 mmol/L (8-16); Blood Urea Nitrogen 11 mg/dL (7-17); Calcium 8.7 mg/dL (8.4-10.2); Carbon Dioxide 29 mmol/L (22-30); Chloride 103 mmol/L (98-107); Estimated CRCL calculation 53 ml/min; Estimated Glomerular Filt Rate 41; Glucose 116 mg/dL (65-110); Potassium 3.9 mmol/L (3.4-5.0); Sodium 141 mmol/L (137-145)
[2021-10-06] MEDS: ENOXAPARIN 40 MG/0.4 ML SYRINGE SUB-Q (09:36)
[2021-10-06] MEDS: SACCHAROMYCES BOULARDII 250 MG CAPSULE PO ×2 (09:36→17:32)
--- NOTE | 2021-10-06 11:01 | P.PNIM_ITS ---
Progress Note: A&P Assessment and Plan (1) Sepsis: Qualifiers: Sepsis type: sepsis due to unspecified organism Sepsis acute organ dysfunction status: without acute organ dysfunction Qualified Code(s): A41.9 - Sepsis, unspecified organism Code(s): A41.9 - Sepsis, unspecified organism Status: Acute Assessment and Plan: Secondary to facial cellulitis and abscess. Septic evident by fever, tachycardia, leukocytosis. Lactic 1.1 * Preliminary blood cultures negative to date * Continue IV antibiotics as described below * Leukocytosis resolved. Patient afebrile >72 hours (2) Facial abscess: Code(s): L02.01 - Cutaneous abscess of face Status: Acute Assessment and Plan: Secondary to shaving vs skin picking secondary to methamphetamine use, likely combination of the two * CT scan soft tissue neck showed cellulitis without associated abscess * Initial wound culture with growth of MRSA for which vancomycin is being cont inued * Repeat facial CT on 10/03 showed unchanged cellulitis without evidence of abscess * Seen in consultation by ENT Dr. Terrazas who did incision and drainage of right facial abscess on 10/03 which drained copious amounts of purulent fluid and was subsequently packed * Continue with packing changes daily * Repeat culture collected from I&D on 10/03 with growth of Staph aureus, susceptibility reports pending. Suspect MRSA based on initial wound culture * Supportive care. Warm compresses. Analgesics available as needed * Zosyn added on 10/03/2021 given increase in pain and edema. Discontinued 09/19 03/09 given MAYA with combination Vanc + Zosyn as both wound cultures growing S. aureus and negative blood cultures. (3) Cellulitis of face: Code(s): L03.211 - Cellulitis of face Status: Acute Assessment and Plan: Plan as above (4) COVID: Code(s): U07.1 - COVID-19 Status: Acute Assessment and Plan: Patient incidentally found to be COVID positive without any evidence of pneumonia or symptomatology * Isolation precautions implemented * No COVID-19 specific treatment at this time as she is asymptomatic and has no oxygen requirement * Supportive care as needed * Now complaining of generalized body aches and malaise, likely related to COVID-19. Continue to monitor symptoms (5) Acute kidney injury: Code(s): N17.9 - Acute kidney failure, unspecified Status: Acute Assessment and Plan: Baseline creatinine 0.5-0.7 * Creatinine increased to 1.6 yesterday * Possibly related to combination therapy with vancomycin and Zosyn, which has been discontinued * No evidence of urinary retention * Continue IV fluids * Minimal improvement today with creatinine 1.5. Hopefully this will continue to trend down. Plan for renal ultrasound if no further improvement, consider Nephrology consultation if worsening/no change (6) Drug abuse: Code(s): F19.10 - Other psychoactive substance abuse, uncomplicated Status: Acute Assessment and Plan: Patient smokes methamphetamine on a frequent basis * On admission was reported to be agitated and restless. This has resolved. Ativan provided p.r.n. for anxiety, which she has not required * Drug cessation was discussed with the patient * No evidence of withdrawal symptoms on my exam. (7) Tobacco abuse disorder: Code(s): Z72.0 - Tobacco use Status: Acute Assessment and Plan: Patient initially endorsed cigarette cravings * Nicotine gum as needed * Continue to
--- NOTE | 2021-10-06 11:01 | PM.IMPN ---
Progress Note: A&P Assessment and Plan (1) Sepsis: Qualifiers: Sepsis type: sepsis due to unspecified organism Sepsis acute organ dysfunction status: without acute organ dysfunction Qualified Code(s): A41.9 - Sepsis, unspecified organism Code(s): A41.9 - Sepsis, unspecified organism Status: Acute Assessment and Plan: Secondary to facial cellulitis and abscess. Septic evident by fever, tachycardia, leukocytosis. Lactic 1.1 Preliminary blood cultures negative to date Continue IV antibiotics as described below Leukocytosis resolved. Patient afebrile >72 hours (2) Facial abscess: Code(s): L02.01 - Cutaneous abscess of face Status: Acute Assessment and Plan: Secondary to shaving vs skin picking secondary to methamphetamine use, likely combination of the two CT scan soft tissue neck showed cellulitis without associated abscess Initial wound culture with growth of MRSA for which vancomycin is being continued Repeat facial CT on 10/03 showed unchanged cellulitis without evidence of abscess Seen in consultation by ENT Dr. Terrazas who did incision and drainage of right facial abscess on 10/03 which drained copious amounts of purulent fluid and was subsequently packed Continue with packing changes daily Repeat culture collected from I&D on 10/03 with growth of Staph aureus, susceptibility reports pending. Suspect MRSA based on initial wound culture Supportive care. Warm compresses. Analgesics available as needed Zosyn added on 10/03/2021 given increase in pain and edema. Discontinued 10/05/21 given MAYA with combination Vanc + Zosyn as both wound cultures growing S. aureus and negative blood cultures. (3) Cellulitis of face: Code(s): L03.211 - Cellulitis of face Status: Acute Assessment and Plan: Plan as above (4) COVID: Code(s): U07.1 - COVID-19 Status: Acute Assessment and Plan: Patient incidentally found to be COVID positive without any evidence of pneumonia or symptomatology Isolation precautions implemented No COVID-19 specific treatment at this time as she is asymptomatic and has no oxygen requirement Supportive care as needed Now complaining of generalized body aches and malaise, likely related to COVID-19. Continue to monitor symptoms (5) Acute kidney injury: Code(s): N17.9 - Acute kidney failure, unspecified Status: Acute Assessment and Plan: Baseline creatinine 0.5-0.7 Creatinine increased to 1.6 yesterday Possibly related to combination therapy with vancomycin and Zosyn, which has been discontinued No evidence of urinary retention Continue IV fluids Minimal improvement today with creatinine 1.5. Hopefully this will continue to trend down. Plan for renal ultrasound if no further improvement, consider Nephrology consultation if worsening/no change (6) Drug abuse: Code(s): F19.10 - Other psychoactive substance abuse, uncomplicated Status: Acute Assessment and Plan: Patient smokes methamphetamine on a frequent basis On admission was reported to be agitated and restless. This has resolved. Ativan provided p.r.n. for anxiety, which she has not required Drug cessation was discussed with the patient No evidence of withdrawal symptoms on my exam. (7) Tobacco abuse disorder: Code(s): Z72.0 - Tobacco use Status: Acute Assessment and Plan: Patient initially endorsed cigarette cravings Nicotine gum as needed Continue to reinforce tobacco cessation (8) Abnormal urinalysis: Code(s): R82.90 - Unspecified abnormal findings in urine Status: Acute Assessment and Plan: UA abnormal however with many squamous cells, likely contamination. Patient denies urinary symptoms. Urine culture negative, no further treatment required (9) Sinus tachycardia: Code(s): R00.0 - Tachycardia, unspecified Status: Acute Assessme
--- NOTE | 2021-10-06 12:13 | PC.NURSE ---
lab called at 1213 to provide updated culture results. pt's wound is growing MRSA.
[2021-10-06] MEDS: ACETAMINOPHEN 325 MG TABLET 650 MG PO (17:36)
[2021-10-06] MEDS: LORazepam (*CRX) 0.5 MG TABLET PO (17:36)
--- NOTE | 2021-10-06 18:35 | PM.PNGS ---
Progress Note: A&P Assessment and Plan (1) Facial abscess: Code(s): L02.01 - Cutaneous abscess of face Status: Acute Assessment and Plan: Continue packing until no longer able to pack, patient said grandmother can perform, 14 day course of anti MRSA on discharge, follow up with ENT if any questions concerns persist Subjective Subjective Date/Time Seen: 10/06/21 18:35 Patient reports feeling ill. wbc stable, abscess speciated as MRSA. Exam HENMT: Other: Improved appearance, no fluctuance, persistent induration. Packing in place Objective Data Vital Signs Vital Signs: Vital Signs - 24 hr 10/05/21 20:00 10/06/21 00:00 10/06/21 04:00 Temperature 36.2 C L 36.1 C L 36.8 C Pulse Rate 86 94 102 H Respiratory Rate 18 18 18 Blood Pressure 136/83 135/80 137/83 Pulse Oximetry 99 100 100 10/06/21 08:00 10/06/21 12:00 10/06/21 14:58 Temperature 37.1 C 36.3 C L Pulse Rate 105 H 106 H Respiratory Rate 17 16 Blood Pressure 131/97 H 145/86 H Pulse Oximetry 97 100 97 10/06/21 16:00 Temperature 35.7 C L Pulse Rate 115 H Respiratory Rate 17 Blood Pressure 134/92 H Pulse Oximetry 97 Intake/Output Intake/Output: Intake & Output 10/03/21 10/04/21 10/05/21 10/06/21 23:59 23:59 23:59 23:59 Intake Total 3280 4170 3680 4000 Output Total 800 Balance 2480 4170 3680 4000 Meds/Results Medications: Active Medications Generic Name Dose Route Start Last Admin Trade Name Freq PRN Reason Stop Dose Admin Acetaminophen 650 mg 10/01/21 20:43 10/06/21 17:36 Acetaminophen 325 Mg Tablet PO 650 mg Q4H PRN Administration Mild Pain (1-3) or Fever Enoxaparin Sodium 40 mg 10/02/21 09:00 10/06/21 09:36 Enoxaparin 40 Mg/0.4 Ml Syringe SUB-Q 40 mg DAILY MIAH Administration Sodium Chloride 1,000 mls @ 90 mls/hr 10/05/21 10:10 10/06/21 17:33 Normal Saline Iv IV CONT 90 mls/hr .[id number] MIAH Administration Vancomycin HCl 1,500 mg in 500 mls @ 333.333 mls/hr 10/06/21 03:00 10/06/21 08:29 Vancomycin 1,500 Mg/D5w 500 Ml IVPB Infused Q18H MIAH Infusion Lorazepam 0.5 mg 10/01/21 22:12 10/06/21 17:36 Lorazepam (*Crx) 0.5 Mg Tablet PO 0.5 mg Q6H PRN Administration Anxiety Nicotine Polacrilex 4 mg 10/01/21 22:12 10/02/21 00:06 Nicotine (*Pbkc) 4 Mg Gum PO 4 mg Q1H PRN Administration Nicotine Cravings Ondansetron HCl 4 mg 10/01/21 20:43 10/05/21 17:27 Ondansetron Inj 4 Mg/2 Ml Vial IV PUSH 4 mg Q4H PRN Administration Nausea Saccharomyces Boulardii 250 mg 10/03/21 17:00 10/06/21 17:32 Saccharomyces Boulardii 250 Mg Capsule PO 250 mg BID MIAH Administration Tramadol HCl 50 mg 10/03/21 15:51 10/04/21 18:15 Tramadol Hcl (*Crx) 50 Mg Tablet PO 50 mg Q6H PRN Administration Pain Rated 4-6 Radiology Results: ITS Impressions Soft Tissue Neck CT 10/01/21 19:35 IMPRESSION: 1. Soft tissue cellulitis of the left sabianist without associated abscess. 2. Lymphadenopathy of the right neck, likely reactive. Face CT 10/03/21 16:59 IMPRESSION: 1. Unchanged soft tissue cellulitis at the right side of the face and temporal region of the head. No abscess. 2. Asymmetric right-sided facial and cervical lymphadenopathy. Labs Labs: Laboratory Results - last 24 hr 10/06/21 10/06/21 06:07 06:07 WBC 9.9 RBC 3.74 L Hgb 9.9 L Hct 30.7 L MCV 82.1 MCH 26.5 MCHC 32.2 RDW 14.3 Plt Count 364 MPV 10.0 Sodium 141 Potassium 3.9 Chloride 103 Carbon Dioxide 29 Anion Gap 9 BUN 11 D Creatinine 1.50 H Estim Creat Clear Calc 53 Estimated GFR 41 L Glucose 116 H Calcium 8.7 Quality VTE Prophylaxis VTE prophylaxis: pharmacologic ordered (Lovenox 40 mg subQ daily.)
--- NOTE | 2021-10-06 18:47 | PC.NURSE ---
Dr. Rodger Terrazas spoke with me about pt's condition. He stated that he thinks pt should be discharged. She should be sent with iodiform packing and continue with the anti-MRSA meds for 10 more days. I agreed to pass this information along to the hospitalist.
[2021-10-07] VITALS (8 sets, daily range): BP systolic 130–149; BP diastolic 64–92; PULSE 54–108; RESP 16–18; TEMP 36.7–37.5; O2SAT 98–100
[2021-10-07 07:09] LABS: Anion Gap 6 mmol/L (8-16); Blood Urea Nitrogen 9 mg/dL (7-17); Calcium 8.6 mg/dL (8.4-10.2); Carbon Dioxide 29 mmol/L (22-30); Chloride 102 mmol/L (98-107); Estimated CRCL calculation 53 ml/min; Estimated Glomerular Filt Rate 41; Glucose 105 mg/dL (65-110); Potassium 3.7 mmol/L (3.4-5.0); Sodium 137 mmol/L (137-145)
[2021-10-07] MEDS: SODIUM CHLORIDE 0.9% IV 1,000 ML 90 ML IV CONT (08:17)
[2021-10-07] MEDS: SACCHAROMYCES BOULARDII 250 MG CAPSULE PO ×2 (08:18→15:25)
[2021-10-07] MEDS: ENOXAPARIN 40 MG/0.4 ML SYRINGE SUB-Q (08:18)
--- NOTE | 2021-10-07 10:57 | P.PNIM_ITS ---
Progress Note: A&P Assessment and Plan (1) Sepsis: Qualifiers: Sepsis type: sepsis due to unspecified organism Sepsis acute organ dysfunction status: without acute organ dysfunction Qualified Code(s): A41.9 - Sepsis, unspecified organism Code(s): A41.9 - Sepsis, unspecified organism Status: Acute Assessment and Plan: Secondary to facial cellulitis and abscess. Septic evident by fever, tachycardia, leukocytosis. Lactic 1.1 * Preliminary blood cultures negative to date * Continue IV antibiotics as described below * Leukocytosis and fever resolved (2) Facial abscess: Code(s): L02.01 - Cutaneous abscess of face Status: Acute Assessment and Plan: Secondary to shaving vs skin picking secondary to methamphetamine use, likely combination of the two * CT scan soft tissue neck showed cellulitis without associated abscess * Initial wound culture 10/01 with growth of MRSA * Repeat facial CT on 10/03 showed unchanged cellulitis without evidence of abscess * Seen in consultation by ENT Dr. Terrazas who did incision and drainage of right facial abscess on 10/03 which drained copious amounts of purulent fluid and was subsequently packed * Continue with packing changes daily * Blood cultures negative * Repeat culture collected from I&D on 10/03 with growth of MRSA. * Supportive care. Warm compresses. Analgesics available as needed * Zosyn added on 10/03/2021 for broad coverage given increase in pain and edema. Discontinued 10/05/21 given MAYA with combination Vanc + Zosyn * Will plan to proceed with PO clindamycin on discharge. Will avoid Bactrim given her acute kidney injury. (3) Cellulitis of face: Code(s): L03.211 - Cellulitis of face Status: Acute Assessment and Plan: Plan as above (4) COVID: Code(s): U07.1 - COVID-19 Status: Acute Assessment and Plan: Patient incidentally found to be COVID positive without any evidence of pneumonia * Isolation precautions implemented * No COVID-19 specific treatment at this time as she is asymptomatic and has no oxygen requirement * Complains of generalized body aches and fatigue. Continue acetaminophen and supportive care (5) Acute kidney injury: Code(s): N17.9 - Acute kidney failure, unspecified Status: Acute Assessment and Plan: Baseline creatinine 0.5-0.7 * Creatinine increased to 1.6 on 10/05 * Most likely related to combination therapy with vancomycin and Zosyn, which has been discontinued * No evidence of urinary retention * Continue IV fluids * Will obtain renal ultrasound today * Minimal improvement with creatinine 1.5, remaining stable today. Suspect this will continue to trend down slowly * Plan for discharge tomorrow if remaining stable * As noted above, will avoid Bactrim on discharge due to MAYA (6) Drug abuse: Code(s): F19.10 - Other psychoactive substance abuse, uncomplicated Status: Acute Assessment and Plan: Patient smokes methamphetamine on a frequent basis * On admission was reported to be agitated and restless. This has resolved. Ativan provided p.r.n. for anxiety * Drug cessation was discussed with the patient * No evidence of withdrawal symptoms on my exam. (7) Tobacco abuse disorder: Code(s): Z72.0 - Tobacco use Status: Acute Assessment and Plan: Patient initially endorsed cigarette cravings * Nicotine gum as needed * Continue to reinforce tobacco cessation (8) Abnormal urinalysis: Code(
--- NOTE | 2021-10-07 10:57 | PM.IMPN ---
Progress Note: A&P Assessment and Plan (1) Sepsis: Qualifiers: Sepsis type: sepsis due to unspecified organism Sepsis acute organ dysfunction status: without acute organ dysfunction Qualified Code(s): A41.9 - Sepsis, unspecified organism Code(s): A41.9 - Sepsis, unspecified organism Status: Acute Assessment and Plan: Secondary to facial cellulitis and abscess. Septic evident by fever, tachycardia, leukocytosis. Lactic 1.1 Preliminary blood cultures negative to date Continue IV antibiotics as described below Leukocytosis and fever resolved (2) Facial abscess: Code(s): L02.01 - Cutaneous abscess of face Status: Acute Assessment and Plan: Secondary to shaving vs skin picking secondary to methamphetamine use, likely combination of the two CT scan soft tissue neck showed cellulitis without associated abscess Initial wound culture 10/01 with growth of MRSA Repeat facial CT on 10/03 showed unchanged cellulitis without evidence of abscess Seen in consultation by ENT Dr. Terrazas who did incision and drainage of right facial abscess on 10/03 which drained copious amounts of purulent fluid and was subsequently packed Continue with packing changes daily Blood cultures negative Repeat culture collected from I&D on 10/03 with growth of MRSA. Supportive care. Warm compresses. Analgesics available as needed Zosyn added on 10/03/2021 for broad coverage given increase in pain and edema. Discontinued 10/05/21 given MAYA with combination Vanc + Zosyn Will plan to proceed with PO clindamycin on discharge. Will avoid Bactrim given her acute kidney injury. (3) Cellulitis of face: Code(s): L03.211 - Cellulitis of face Status: Acute Assessment and Plan: Plan as above (4) COVID: Code(s): U07.1 - COVID-19 Status: Acute Assessment and Plan: Patient incidentally found to be COVID positive without any evidence of pneumonia Isolation precautions implemented No COVID-19 specific treatment at this time as she is asymptomatic and has no oxygen requirement Complains of generalized body aches and fatigue. Continue acetaminophen and supportive care (5) Acute kidney injury: Code(s): N17.9 - Acute kidney failure, unspecified Status: Acute Assessment and Plan: Baseline creatinine 0.5-0.7 Creatinine increased to 1.6 on 10/05 Most likely related to combination therapy with vancomycin and Zosyn, which has been discontinued No evidence of urinary retention Continue IV fluids Will obtain renal ultrasound today Minimal improvement with creatinine 1.5, remaining stable today. Suspect this will continue to trend down slowly Plan for discharge tomorrow if remaining stable As noted above, will avoid Bactrim on discharge due to MAYA (6) Drug abuse: Code(s): F19.10 - Other psychoactive substance abuse, uncomplicated Status: Acute Assessment and Plan: Patient smokes methamphetamine on a frequent basis On admission was reported to be agitated and restless. This has resolved. Ativan provided p.r.n. for anxiety Drug cessation was discussed with the patient No evidence of withdrawal symptoms on my exam. (7) Tobacco abuse disorder: Code(s): Z72.0 - Tobacco use Status: Acute Assessment and Plan: Patient initially endorsed cigarette cravings Nicotine gum as needed Continue to reinforce tobacco cessation (8) Abnormal urinalysis: Code(s): R82.90 - Unspecified abnormal findings in urine Status: Acute Assessment and Plan: UA abnormal however with many squamous cells, likely contamination. Patient denies urinary symptoms. Urine culture negative, no further treatment required (9) Sinus tachycardia: Code(s): R00.0 - Tachycardia, unspecified Status: Acute Assessment and Plan: Heart rate has been ranging from 100-120 Likely related to acute infect
[2021-10-07 14:38] LABS: Vancomycin Trough 14.8 ug/mL (10.0-20.0)
[2021-10-07] MEDS: ACETAMINOPHEN 325 MG TABLET 650 MG PO (21:03)
[2021-10-08] VITALS: BP 125/78; PULSE 88; RESP 16; TEMP 36.2; O2SAT 100
[2021-10-08 04:00] VITALS: BP 134/84; PULSE 89; RESP 16; TEMP 36.9; O2SAT 100
[2021-10-08] MEDS: SODIUM CHLORIDE 0.9% IV 1,000 ML 90 ML IV CONT (06:14)
[2021-10-08 06:51] LABS: Anion Gap 10 mmol/L (8-16); Blood Urea Nitrogen 8 mg/dL (7-17); Calcium 8.7 mg/dL (8.4-10.2); Carbon Dioxide 25 mmol/L (22-30); Chloride 103 mmol/L (98-107); Estimated CRCL calculation 57 ml/min; Estimated Glomerular Filt Rate 44; Glucose 107 mg/dL (65-110); Potassium 3.9 mmol/L (3.4-5.0); Sodium 138 mmol/L (137-145)
[2021-10-08 08:00] VITALS: BP 135/88; PULSE 96; RESP 16; TEMP 36.4; O2SAT 100
[2021-10-08] MEDS: SACCHAROMYCES BOULARDII 250 MG CAPSULE PO (08:12)
[2021-10-08] MEDS: ENOXAPARIN 40 MG/0.4 ML SYRINGE SUB-Q (08:13)
--- NOTE | 2021-10-08 09:39 | P.DS_ITS ---
DS: Admitting Diagnosis Discharge Date 10/08/2021 Admitting Diagnosis Facial cellulitis DS: Discharge Diagnosis Discharge Diagnosis (1) Sepsis: Qualifiers: Sepsis acute organ dysfunction status: without acute organ dysfunction Sepsis type: sepsis due to unspecified organism Qualified Code(s): A41.9 - Sepsis, unspecified organism Code(s): A41.9 - Sepsis, unspecified organism Status: Acute Assessment and Plan: Secondary to facial cellulitis and abscess. Septic evident by fever, tachycardia, leukocytosis. Lactic 1.1 * Resolved. * Leukocytosis and fever resolved during admission * Blood cultures negative * Managed with IV antibiotics. See below (2) Facial abscess: Code(s): L02.01 - Cutaneous abscess of face Status: Acute Assessment and Plan: Right facial abscess to shaving vs skin picking secondary to methamphetamine use, likely combination of the two * CT scan soft tissue neck on presentation showed cellulitis without associated abscess * Initial wound culture 10/01 with growth of MRSA * 10/03 patient had increased edema in pain. Repeat facial CT showed unchanged cellulitis without evidence of abscess * Consult to ENT Dr. Terrazas as patient had associated ear and throat pain. ENT performed I&D of right facial abscess on 10/03 which drained copious amounts of purulent fluid and was subsequently packed. * Packing changes continue daily during admission. The patient's grandmother will help her with packing the wound on discharge * Repeat cultures collected from I&D on 10/03 also with growth of MRSA * Patient treated with IV vancomycin * 10/03 Zosyn added to broaden coverage given change in clinical condition. Discontinued 10/05/2021 secondary to onset of MAYA with combination therapy vanc + zosyn. * Continue p.o. clindamycin on discharge to complete a total of 14 days of antibiotic therapy. Probiotic prescribed * PO Bactrim was avoided given her acute kidney injury * Patient had overall significant symptomatic improvement and wound improved. (3) Cellulitis of face: Code(s): L03.211 - Cellulitis of face Status: Acute Assessment and Plan: Plan as above (4) COVID: Code(s): U07.1 - COVID-19 Status: Acute Assessment and Plan: Patient incidentally found to be COVID positive without any evidence of pneumonia * Isolation precautions implemented * No COVID-19 specific treatment required as she is asymptomatic and had no oxygen requirement * Discussed necessary COVID-19 precautions (5) Acute kidney injury: Code(s): N17.9 - Acute kidney failure, unspecified Status: Acute Assessment and Plan: Baseline creatinine 0.5-0.7 * Creatinine increased to 1.6 on 10/05 * Most likely related to combination therapy with vancomycin and Zosyn, which has been discontinued * No evidence of urinary retention * Rehydrated with IV fluids * Renal US was unremarkable without evidence of stone, mass, hydronephrosis * Creatinine slowly trended down to 1.4 at time of discharge * Expect further improvement following discontinuation of IV antibiotics * As noted above, Bactrim was avoided due to MAYA * Repeat BMP in 1 week to ensure continued improvement/return to baseline (6) Drug abuse: Code(s): F19.10 - Other psychoactive substance abuse, uncomplicated Status: Acute Assessment and Plan: Patient smokes methamphetamine on a frequent basis * At presentation was reported to be agitated and restless. This quickly resolved and patient
--- NOTE | 2021-10-08 09:39 | PM.DS ---
DS: Admitting Diagnosis Discharge Date 10/08/2021 Admitting Diagnosis Facial cellulitis DS: Discharge Diagnosis Discharge Diagnosis (1) Sepsis: Qualifiers: Sepsis acute organ dysfunction status: without acute organ dysfunction Sepsis type: sepsis due to unspecified organism Qualified Code(s): A41.9 - Sepsis, unspecified organism Code(s): A41.9 - Sepsis, unspecified organism Status: Acute Assessment and Plan: Secondary to facial cellulitis and abscess. Septic evident by fever, tachycardia, leukocytosis. Lactic 1.1 Resolved. Leukocytosis and fever resolved during admission Blood cultures negative Managed with IV antibiotics. See below (2) Facial abscess: Code(s): L02.01 - Cutaneous abscess of face Status: Acute Assessment and Plan: Right facial abscess to shaving vs skin picking secondary to methamphetamine use, likely combination of the two CT scan soft tissue neck on presentation showed cellulitis without associated abscess Initial wound culture 10/01 with growth of MRSA 10/03 patient had increased edema in pain. Repeat facial CT showed unchanged cellulitis without evidence of abscess Consult to ENT Dr. Terrazas as patient had associated ear and throat pain. ENT performed I&D of right facial abscess on 10/03 which drained copious amounts of purulent fluid and was subsequently packed. Packing changes continue daily during admission. The patient's grandmother will help her with packing the wound on discharge Repeat cultures collected from I&D on 10/03 also with growth of MRSA Patient treated with IV vancomycin 10/03 Zosyn added to broaden coverage given change in clinical condition. Discontinued 10/05/2021 secondary to onset of MAYA with combination therapy vanc + zosyn. Continue p.o. clindamycin on discharge to complete a total of 14 days of antibiotic therapy. Probiotic prescribed PO Bactrim was avoided given her acute kidney injury Patient had overall significant symptomatic improvement and wound improved. (3) Cellulitis of face: Code(s): L03.211 - Cellulitis of face Status: Acute Assessment and Plan: Plan as above (4) COVID: Code(s): U07.1 - COVID-19 Status: Acute Assessment and Plan: Patient incidentally found to be COVID positive without any evidence of pneumonia Isolation precautions implemented No COVID-19 specific treatment required as she is asymptomatic and had no oxygen requirement Discussed necessary COVID-19 precautions (5) Acute kidney injury: Code(s): N17.9 - Acute kidney failure, unspecified Status: Acute Assessment and Plan: Baseline creatinine 0.5-0.7 Creatinine increased to 1.6 on 10/05 Most likely related to combination therapy with vancomycin and Zosyn, which has been discontinued No evidence of urinary retention Rehydrated with IV fluids Renal US was unremarkable without evidence of stone, mass, hydronephrosis Creatinine slowly trended down to 1.4 at time of discharge Expect further improvement following discontinuation of IV antibiotics As noted above, Bactrim was avoided due to MAYA Repeat BMP in 1 week to ensure continued improvement/return to baseline (6) Drug abuse: Code(s): F19.10 - Other psychoactive substance abuse, uncomplicated Status: Acute Assessment and Plan: Patient smokes methamphetamine on a frequent basis At presentation was reported to be agitated and restless. This quickly resolved and patient had no signs or symptoms of withdrawal throughout admission Drug cessation was discussed (7) Tobacco abuse disorder: Code(s): Z72.0 - Tobacco use Status: Acute Assessment and Plan: She smokes a half pack per day Nicotine gum provided as needed Smoking cessation was discussed. She intends to quit smoking. She does not feel that this will be an issue as she has not had any cigarettes over the past week
== END 2021-10-08 10:33 | disposition home or self-care (01) | DRG 720 ==
LOC: ANHED 20:43 → ANH3MEDSUR 21:07
PROVIDERS: Physician Assistant; Admitting Provider Internal Medicine; Emergency Provider Nurse Practitioner; PCP Family Medicine; Visit Provider Family Medicine
DX: A41.9 Sepsis, unspecified organism (principal); L02.01 Cutaneous abscess of face; L03.211 Cellulitis of face; U07.1 COVID-19; B95.62 Methicillin resistant Staphylococcus aureus infection as the cause of diseases classified elsewhere; F17.210 Nicotine dependence, cigarettes, uncomplicated; F41.9 Anxiety disorder, unspecified; F15.10 Other stimulant abuse, uncomplicated; N17.9 Acute kidney failure, unspecified; R82.90 Unspecified abnormal findings in urine; F42.4 Excoriation (skin-picking) disorder
CPT/HCPCS: 36415; 70486; 70491; 76775; 80048; 80053; 80202; 80307; 81001; 81025; 82565; 83605; 85025; 85027; 85610; 85730; 86140; 87040; 87070; 87075; 87076; 87086; 87088; 87147; 87186; 87205; 93005; 96361; 96365; 96366; 96367; 96372; 96375; 99285; A9270; C9803; G0378; J0696; J1650; J1885; J2405; J2543; J3370; J7030; Q9967; U0003; U0005

== ENCOUNTER 2022-07-02 09:14 | Emergency (ER) | payer OTHER, SELFPAY ==
[2022-07-02 09:20] VITALS: BP 146/90; PULSE 101; RESP 18; TEMP 36.3; O2SAT 98
--- NOTE | 2022-07-02 09:57 | ED.UPPEXIN ---
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 complaint: injury to: left, right, wrist and hand Onset (ago): day(s) Other Extremity Injury: Left: hand and Right: fingers ( Finger and hand numbness with pain) Other injuries: none Handedness: right Place: home Severity: moderate Severity scale (1-10): 4 Relieving factors: immobilization and medication Related Data Home Medications Medication Instructions Recorded Confirmed venlafaxine 75 mg capsule,extended 75 mg PO DAILY 07/02/22 07/02/22 release 24 hr Allergies Allergy/AdvReac Type Severity Reaction Status Date / Time No Known Allergies Allergy Mild Verified 07/02/22 09:33 Review of Systems Review of Systems: All systems reviewed & are unremarkable except as noted in HPI and below PMFSH Past Medical History Medical History Depression Drug abuse History of migraine Surgical History Surgical History Hx of tonsillectomy Family History Family History Mother Healthy female Grandparent Breast cancer Social History Social History Social History: The patient and her 6-year-old daughter recently moved back in with her mother. 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 She has smoked half pack of cigarettes per day since she was 18. She smokes methamphetamines on a frequent basis. She occasionally smokes marijuana. She rarely uses cocaine. She denies any IV drug use. She binge drinks every other weekend or so. Surrogate decision maker: Mother Smoking packs per day: 0.5 Smoking cigarettes per day: 10.0 Years smoked: 10 Smoking pack-years: 5.00 Smoking status: Light tobacco smoker Tobacco type: cigarettes Second hand tobacco smoke exposure: No Alcohol intake: current Drinks per week: 5 Substance use: current Substance use type: marijuana, crack/cocaine, methamphetamine and prescription drug Last use: last weekend Gender identity (if verbalized by the patient): Male Sexual Orientation (if Verbalized by the Patient): Straight or Heterosexual Spiritual care concerns: No Exam Const: General: healthy appearing Nutritional Appearance: well nourished Orientation/consciousness: patient oriented x3 Limitations: no limitations HENMT: Head: normal to inspection Mouth: Yes Normal oral and palatal mucosa present Eyes: Conjunctivae: conjunctivae normal Neck: Neck: normal visual inspection Chest: Chest palpation & inspection: normal inspection of the chest Resp: Effort & Inspection: normal respiratory effort Auscultation: clear to auscultation bilaterally Cardio: Rate: regular rate Rhythm: regular rhythm GI: GI Palp: Yes Soft to palpation Auscultation: normal bowel sounds Back/Spine/Pelvis: Back: no CVA tenderness Skin: General skin exam: normal color Rashes: no rashes Wounds: no wounds Neuro: Other: Positive Phalen sign bilateral wrist Psych: Mental Status: mental status grossly normal Affect: normal affect Course Course Emergency Course: patient received a dose of IM Depo-Medrol 80mg, explained that she should wear wrist splints and take Tylenol as needed along with some follow-up with her primary care physician.
[2022-07-02] MEDS: methylPREDNISolone ACETATE 40 MG/ML VIAL 80 MG IM (10:06)
[2022-07-02 10:24] VITALS: BP 135/88; PULSE 89; RESP 16; TEMP 36.4; O2SAT 99
== END 2022-07-02 10:28 | disposition home or self-care (01) ==
PROVIDERS: Emergency Provider Emergency Medicine; PCP Family Medicine
DX: G56.01 Carpal tunnel syndrome, right upper limb (principal)
CPT/HCPCS: 96372; 99283; J1030

== ENCOUNTER 2022-09-07 22:04 | Emergency (ER) | payer OTHER, SELFPAY ==
[2022-09-07 22:10] VITALS: BP 136/87; PULSE 109; RESP 18; TEMP 36.4; O2SAT 100
--- NOTE | 2022-09-07 22:39 | ED.URI ---
HPI - URI/Sore Throat General Chief Complaint: Upper Respiratory Infection Stated Complaint: sore throat, chills Time Seen by Provider: 09/07/22 22:39 Source: patient and RN notes reviewed Mode of arrival: ambulatory Limitations: no limitations History of Present Illness MD elicited complaint: sore throat Onset (ago): day(s) (1 this morning) Consistency: constant Severity: moderate Able to tolerate fluids by mouth: Yes Exacerbating factors: speaking Relieving factors: nothing Associated symptoms: chills, myalgias, headache, nasal congestion and sore throat Treatments prior to arrival: none Related Data Home Medications Medication Instructions Recorded Confirmed venlafaxine 75 mg capsule,extended 75 mg PO DAILY 07/02/22 09/07/22 release 24 hr cyanocobalamin (vitamin B-12) 1,000 mcg PO DAILY 09/07/22 09/07/22 1,000 mcg tablet (Vitamin B-12) ferrous sulfate 325 mg (65 mg 325 mg PO BID 09/07/22 09/07/22 iron) tablet folic acid 1 mg tablet 1 mg PO DAILY 09/07/22 09/07/22 hydrochlorothiazide 12.5 mg capsule 12.5 mg PO DAILY 09/07/22 09/07/22 trazodone 50 mg tablet 50 mg PO HS 09/07/22 09/07/22 Allergies Allergy/AdvReac Type Severity Reaction Status Date / Time No Known Allergies Allergy Mild Verified 09/07/22 22:15 Review of Systems Review of Systems: All systems reviewed & are unremarkable except as noted in HPI and below PMFSH Past Medical History Medical History Depression Drug abuse History of migraine Surgical History Surgical History Hx of tonsillectomy Family History Family History Mother Healthy female Grandparent Breast cancer Social History Social History Social History: The patient and her 6-year-old daughter recently moved back in with her mother. 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 She has smoked half pack of cigarettes per day since she was 18. She smokes methamphetamines on a frequent basis. She occasionally smokes marijuana. She rarely uses cocaine. She denies any IV drug use. She binge drinks every other weekend or so. Surrogate decision maker: Mother Smoking packs per day: 0.5 Smoking cigarettes per day: 10.0 Years smoked: 10 Smoking pack-years: 5.00 Smoking status: Light tobacco smoker Tobacco type: cigarettes Second hand tobacco smoke exposure: No Alcohol intake: current Drinks per week: 5 Substance use: current Substance use type: marijuana, crack/cocaine, methamphetamine and prescription drug Last use: last weekend Living arrangements: with family Gender identity (if verbalized by the patient): Male Sexual Orientation (if Verbalized by the Patient): Straight or Heterosexual Spiritual care concerns: No Exam Const: General: healthy appearing, no acute distress and alert Nutritional Appearance: well nourished Orientation/consciousness: patient oriented x3 Limitations: no limitations Other: Female nurse in room during examination. HENMT: Head: normal to inspection Ears: external ears normal Face/Nose/Sinus: Normal external nose present Face and sinus: normal facial exam Mouth: Yes moist mucous membranes Throat: uvula midline, posterior oropharynx abnormal erythema; no exudates and tonsils absent Eyes: Conjunctivae: conjunctivae normal Pupils: Equal, round and reactive pupils present EOM: EOMs intact bilaterally Neck: Neck: normal visual inspection Resp: Effort & Inspection: normal respiratory effort Auscultation: clear to auscultation bilaterally Cardio: Rate: regular rate Rhythm: regular rhythm GI: GI Palp: Yes Soft to palpation and No Tenderness to palpation present (GI) Auscultation: normal bowel sounds Back/Spine/Pe
--- NOTE | 2022-09-07 22:43 | PC.NURSE ---
Assisted with pt exam.
[2022-09-07 23:12] LABS: Strep Group A RT-PCR DETECTED (Negative)
[2022-09-07 23:20] LABS: Influenza A QL RT-PCR Negative (Negative); Influenza B QL RT-PCR Negative (Negative); SARS-CoV-2 RNA PCR Negative (Negative)
[2022-09-07] MEDS: AMOXICILLIN 250 MG CAP PO (23:30)
[2022-09-07 23:35] VITALS: BP 138/70; PULSE 100; RESP 18; TEMP 36.7; O2SAT 99
== END 2022-09-07 23:35 | disposition home or self-care (01) ==
PROVIDERS: Emergency Provider Emergency Medicine; PCP Family Medicine
DX: J02.0 Streptococcal pharyngitis (principal); F17.210 Nicotine dependence, cigarettes, uncomplicated; Z20.822 Contact with and (suspected) exposure to COVID-19
CPT/HCPCS: 87636; 87651; 99283; A9270

== ENCOUNTER 2023-01-01 18:39 | Emergency (ER) | payer OTHER, SELFPAY ==
[2023-01-01 18:43] VITALS: BP 140/84; PULSE 82; RESP 18; TEMP 37.1; O2SAT 100
[2023-01-01 18:45] VITALS: BP 140/84; PULSE 82; RESP 18; TEMP 37.1; O2SAT 100
--- NOTE | 2023-01-01 19:08 | PC.NURSE ---
REPORT TO DAVID EJ
--- NOTE | 2023-01-01 20:21 | ED.HA ---
HPI - Headache General Chief Complaint: Headache Stated Complaint: migraine Source: patient Mode of arrival: ambulatory Limitations: no limitations History of Present Illness HPI Narrative: 32-year-old white female with a long history migraine headaches, and gets them every 2-4 months. This 1 began at 2:00 a.m. last night, and has been severe, has not responded to her Imitrex, she has had multiple episodes of nausea vomiting, has photophobia, and comes in now for treatment. She denies any recent fever or chills, sinus drainage, sore throat, chest pain, palpitations, near-syncope or syncope. Denies any recent her antecedent abdominal pain, nausea vomiting, diarrhea constipation, dysuria urgency or frequency. Denies any head injury. Related Data Home Medications Medication Instructions Recorded Confirmed cyanocobalamin (vitamin B-12) 1,000 mcg PO DAILY 09/07/22 01/01/23 1,000 mcg tablet (Vitamin B-12) ferrous sulfate 325 mg (65 mg 325 mg PO BID 09/07/22 01/01/23 iron) tablet folic acid 1 mg tablet 1 mg PO DAILY 09/07/22 01/01/23 hydrochlorothiazide 12.5 mg capsule 12.5 mg PO DAILY 09/07/22 01/01/23 medroxyprogesterone 150 mg/mL 1 mg IM DIRECTED 01/01/23 01/01/23 intramuscular syringe Allergies Allergy/AdvReac Type Severity Reaction Status Date / Time No Known Allergies Allergy Mild Verified 01/01/23 18:41 Review of Systems Review of Systems: All systems reviewed & are unremarkable except as noted in HPI and below (the hpi) [facility] Past Medical History Medical History Depression Drug abuse History of migraine Surgical History Surgical History Hx of tonsillectomy Family History Family History Mother Healthy female Grandparent Breast cancer Social History Social History Social History: The patient and her 6-year-old daughter recently moved back in with her mother. 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 She has smoked half pack of cigarettes per day since she was 18. She smokes methamphetamines on a frequent basis. She occasionally smokes marijuana. She rarely uses cocaine. She denies any IV drug use. She binge drinks every other weekend or so. Surrogate decision maker: Mother Smoking packs per day: 0.5 Smoking cigarettes per day: 10.0 Years smoked: 10 Smoking pack-years: 5.00 Smoking status: Light tobacco smoker Tobacco type: cigarettes Second hand tobacco smoke exposure: No Alcohol intake: current Drinks per week: 5 Substance use: current Substance use type: marijuana, crack/cocaine, methamphetamine and prescription drug Last use: last weekend Living arrangements: with family Gender identity (if verbalized by the patient): Male Sexual Orientation (if Verbalized by the Patient): Straight or Heterosexual Spiritual care concerns: No Comments pleasant, well oriented, no acute distress, patient is morbidly obese, appears uncomfortable, the room is darkened, she she will drop as Exam Const: General: healthy appearing and no acute distress Nutritional Appearance: obese Orientation/consciousness: patient oriented x3 Limitations: no limitations HENMT: Head: normal to inspection Face/Nose/Sinus: Normal external nose present Face and sinus: normal facial exam Eyes: Conjunctivae: conjunctivae normal Pupils: Equal, round and reactive pupils present EOM: EOMs intact bilaterally Neck: Neck: normal visual inspection Resp: Effort & Inspection: normal respiratory effort Cardio: Rate: regular rate Rhythm: regular rhythm Skin: General skin exam: normal color Rashes: no rashes Wounds: no wounds Neuro: General: patient oriented x3 Cranial nerves: Yes Nystag
[2023-01-01] MEDS: diphenhydrAMINE HCl INJ 50 MG/ML VIAL 25 MG IV PUSH (20:42)
[2023-01-01] MEDS: SODIUM CHLORIDE 0.9% IV 1,000 ML 999 ML IV CONT (20:43)
[2023-01-01] MEDS: KETOROLAC 30 MG/ML VIAL (*BKC) IV PUSH (20:46)
[2023-01-01] MEDS: PROCHLORPERAZINE EDISYLATE 10 MG/2 ML VIAL IV PUSH (20:53)
[2023-01-01 22:53] VITALS: BP 130/89; PULSE 81; RESP 20; TEMP 37.1; O2SAT 97
== END 2023-01-01 22:59 | disposition home or self-care (01) ==
PROVIDERS: Emergency Provider Emergency Medicine; PCP Family Medicine
DX: G43.909 Migraine, unspecified, not intractable, without status migrainosus (principal); F17.210 Nicotine dependence, cigarettes, uncomplicated
CPT/HCPCS: 96361; 96374; 96375; 99284; J0780; J1100; J1200; J1885; J7030

== ENCOUNTER 2023-10-19 18:29 | Emergency (ER) | payer OTHER, SELFPAY ==
[2023-10-19 18:32] VITALS: BP 133/83; PULSE 105; RESP 20; TEMP 36.1; O2SAT 98
--- NOTE | 2023-10-19 18:39 | ED.URI ---
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 no discharge. MD elicited complaint: sore throat and nasal congestion Onset (ago): day(s) (2 days) Consistency: intermittent Severity: moderate Description of mucous: clear Able to tolerate fluids by mouth: No Exacerbating factors: nothing Relieving factors: nothing Associated symptoms: nasal congestion and sore throat Treatments prior to arrival: none Related Data Home Medications Medication Instructions Recorded Confirmed No Home Medications 10/19/23 10/19/23 Allergies Allergy/AdvReac Type Severity Reaction Status Date / Time No Known Allergies Allergy Mild Verified 10/19/23 18:36 [facility] Past Medical History Medical History Depression Drug abuse History of migraine Surgical History Surgical History Hx of tonsillectomy Family History Family History Mother Healthy female Grandparent Breast cancer Social History Social History Social History: The patient and her 6-year-old daughter recently moved back in with her mother. 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 She has smoked half pack of cigarettes per day since she was 18. She smokes methamphetamines on a frequent basis. She occasionally smokes marijuana. She rarely uses cocaine. She denies any IV drug use. She binge drinks every other weekend or so. Surrogate decision maker: Mother Smoking packs per day: 0.5 Smoking cigarettes per day: 10.0 Years smoked: 10 Smoking pack-years: 5.00 Smoking status: Light tobacco smoker Tobacco type: cigarettes Second hand tobacco smoke exposure: No Alcohol intake: current Drinks per week: 5 Substance use: current Substance use type: marijuana, crack/cocaine, methamphetamine and prescription drug Last use: last weekend Living arrangements: with family Gender identity (if verbalized by the patient): Male Sexual Orientation (if Verbalized by the Patient): Straight or Heterosexual Spiritual care concerns: No Exam Const: General: no acute distress Orientation/consciousness: patient oriented x3 Limitations: no limitations HENMT: Head: normal to inspection Ears: external ears normal Face/Nose/Sinus: Normal external nose present Face and sinus: normal facial exam Mouth: Yes Normal oral and palatal mucosa present Throat: posterior oropharynx normal Eyes: Conjunctivae: conjunctivae normal Pupils: Equal, round and reactive pupils present EOM: EOMs intact bilaterally Direct Ophthalmoscopy: no photophobia Neck: Neck: normal visual inspection, no lymphadenopathy and no meningeal signs Chest: Chest palpation & inspection: normal inspection of the chest Resp: Effort & Inspection: normal respiratory effort Auscultation: clear to auscultation bilaterally Cardio: Rate: regular rate Rhythm: regular rhythm GI: GI Palp: Yes Soft to palpation Auscultation: normal bowel sounds : General: Yes no CVA tenderness Back/Spine/Pelvis: Back: no CVA tenderness Skin: General skin exam: normal color Rashes: no rashes Wounds: no wounds Neuro: General: patient oriented x3, moves all extremities, no meningeal signs, no focal motor deficits and CN's II-XI intact bilaterally Cranial nerves: Yes Nystagmus not present Speech: normal speech Gait exam (Neuro): Normal gait present Extrem:
--- NOTE | 2023-10-19 18:59 | PC.NURSE ---
Lab contacted for needed lab draw. Assumed care of pt. Agree with plan and previous shift assessment.
[2023-10-19 19:15] VITALS: BP 132/86; PULSE 89; RESP 18; TEMP 36.9; O2SAT 99
[2023-10-19 19:18] LABS: Strep Group A RT-PCR NOT DETECTED (Negative)
[2023-10-19 19:18] LABS: Basophils Absolute Auto 0.04 K/mm3 (0.00-0.10); Basophils Percent Auto 0.4 % (0.0-1.0); Eosinophils Percent Auto 1.9 % (1.0-6.0); Hematocrit 40.2 % (35.0-49.0); Hemoglobin 12.9 g/dL (12.0-15.0); Immature Granulocyte Absolute 0.03 K/mm3 (0.00-0.00); Immature Granulocyte Percent A 0.3 % (0.0-0.0); Lymphocytes Absolute Auto 2.44 K/mm3 (1.10-4.50); Lymphocytes Percent Auto 22.9 % (18.0-42.0); Mean Corpuscular HGB Conc 32.1 g/dL (32.0-36.0); Mean Corpuscular Hemoglobin 26.7 pg (27.0-31.0); Mean Corpuscular Volume 83.1 fL (78.0-102.0); Mean Platelet Volume 10.2 fl (9.2-11.8); Monocytes Absolute Auto 0.42 K/mm3 (0.10-0.90); Monocytes Percent Auto 3.9 % (2.0-11.0); Neutrophils Absolute Auto 7.5 K/mm3 (1.7-7.2); Neutrophils Percent Auto 70.6 % (50.0-70.0); Platelet Count Result 372 K/mm3 (150-420); Red Blood Count 4.84 M/mm3 (4.20-5.40); Red Cell Distribution Width 13.1 % (11.6-14.4); White Blood Count 10.6 K/mm3 (4.8-10.8)
[2023-10-19 19:22] LABS: SARS-CoV-2 RNA PCR Negative (Negative)
[2023-10-19 19:23] LABS: Influenza A QL RT-PCR Negative (Negative); Influenza B QL RT-PCR Negative (Negative); RSV RNA, RT-PCR Negative (Negative)
[2023-10-19 19:30] LABS: Prothrombin Time 10.6 Seconds (9.50-12.10)
[2023-10-19 19:42] LABS: Alanine Aminotransferase 16 U/L (14-59); Albumin Level 3.8 g/dL (3.4-5.0); Alkaline Phosphatase 80 U/L (46-116); Anion Gap 8 mmol/L (8-16); Aspartate Amino Transferase 14 U/L (15-37); Bilirubin Direct 0.1 mg/dL (0-0.2); Bilirubin,Total 0.1 mg/dL (0.00-1.00); Blood Urea Nitrogen 9 mg/dL (7-18); Calcium 8.6 mg/dL (8.5-10.1); Carbon Dioxide 30 mmol/L (21-32); Chloride 102 mmol/L (98-108); Estimated CRCL calculation 110 ml/min; Estimated Glomerular Filt Rate > 60; Glucose 96 mg/dL (70-99); Osmolality Calculated 288 mOsm/kg (285-295); Potassium 3.4 mmol/L (3.5-5.1); Sodium 140 mmol/L (136-145); Thyroid Stimulating Hormone 1.15 uIU/mL (0.36-3.74); Total Protein 8.4 g/dL (6.4-8.2)
[2023-10-19] MEDS: KETOROLAC 30 MG/ML VIAL (*BKC) IM (19:52)
== END 2023-10-19 20:05 | disposition home or self-care (01) ==
PROVIDERS: Emergency Provider Internal Medicine Critical Care Medicine
DX: J06.9 Acute upper respiratory infection, unspecified (principal); F17.210 Nicotine dependence, cigarettes, uncomplicated; Z20.822 Contact with and (suspected) exposure to COVID-19
CPT/HCPCS: 36415; 80048; 80076; 84443; 85025; 85610; 87637; 87651; 99283; J1885

== ENCOUNTER 2025-03-19 18:02 | Emergency (ER) | payer OTHER, SELFPAY ==
[2025-03-19 18:03] VITALS: BP 142/94; PULSE 80; RESP 16; TEMP 36.7; O2SAT 97
--- OUTSIDE RECORDS SUMMARY | 2025-03-19 18:04 | XMS_ITS | Clinical Summary ---
Author Organization [facility] Address [address] [place] [address] Phone Care Team Providers Care Grants Assistant Name Role Phone Avery Rosenbaum MD Primary Care Provider [phone] Allergies No known active allergies Medications dicyclomine (BENTYL) 20 MG Tablet Take 1 Tab by mouth every 6 hours. 30 Tab 0 Active Additional Information Patient not taking.Reported on 01/07/2020 ondansetron (ZOFRAN) 4 MG Tablet Take 1 Tab by mouth every 8 hours as needed for Nausea - 1st line. 10 Tab 0 Active metoclopramide (REGLAN) 10 MG Tablet Take 1 Tab by mouth 4 times daily. 15 Tab 0 Active Active Problems No known active problems Immunizations Immunization Administration Dates Next Due TDAP Vaccine 05/18/2015 Social History Tobacco Use Types Packs/Day Years Used Date Smoking Tobacco: Every Day Cigarettes Smokeless Tobacco: Never Alcohol Use Standard Drinks/Week Comments No 0 (1 standard drink = 0.6 oz pur e alcohol) Comments No Sex and Gender Information Value Date Recorded Sex Assigned at Not on file Legal Sex Female 11:17 PM CDT Gender Identity Not on file Sexual Orientation Not on file Last Filed Vital Signs Vital Sign Reading Time Taken Comments Blood Pressure 156/84 07/02/2020 8:54 PM PSYCHOLOGY PHYSICIAN Pulse 88 07/02/2020 8:54 PM PSYCHOLOGY PHYSICIAN Temperature 37.2 C (99 F) 07/02/2020 8:11 PM PSYCHOLOGY PHYSICIAN Respiratory Rate 18 07/02/2020 8:54 PM PSYCHOLOGY PHYSICIAN Oxygen Saturation 98% 07/02/2020 8:54 PM PSYCHOLOGY PHYSICIAN Inhaled Oxygen Concentration - - Weight 77.1 kg (170 lb) 07/02/2020 8:11 PM PSYCHOLOGY PHYSICIAN Height 162.6 cm (5' 4) 07/02/2020 8:11 PM PSYCHOLOGY PHYSICIAN Body Mass Index 29.18 07/02/2020 8:11 PM PSYCHOLOGY PHYSICIAN Plan of Treatment Health Maintenance Due Date Last Done Comments Hepatitis C Virus (HCV) Screening 1990 Human Papillomavirus (HPV) Immunization (1 - 3-dose series) 2005 Pap Smear 2011 Cervical Cancer Screening (CCS) 2020 HPV/Cotest 2020 SARS-COV-2 Immunization ( season) 2024 Influenza Immunization (#1) 2025 05/18/2015 Respiratory Syncytial Virus (RSV) Immunization (Adult) (1 - 1-dose 75+ series) 2065 Hepatitis B Immunization Completed , 10/10/1999, 09/12/1999 DTaP/Tdap/Td Immunization Discontinued 2014, 03/14/2004, 04/20/1994, Additional history exists Meningococcal Immunization (ACWY) Aged Out No longer eligible based on patient's age to complete this topic Pneumococcal Immunization Combined Aged Out No longer eligible based on patient's age to complete this topic Rotavirus Immunization Aged Out No lo nger eligible based on patient's age to complete this topic Additional Health Concerns Infection Onset Date Last Indicated MRSA 10/31/2019 10/31/2019 Insurance MEDICAID AETNA [facility] Care Teams Grants Assistant Relationship Specialty Start Date End Date Avery Rosenbaum MD [address] [place] [address] [place] [address] PCP - General Family Medicine 12/25/18
--- OUTSIDE RECORDS SUMMARY | 2025-03-19 18:04 | XMS_ITS | Encounter Summary ---
Author Organization [facility] Address [facility] [place] [address] Care Team Providers Care Clothing Trades Workers Name Role Phone Avery Rosenbaum MD Primary Care Provider Encounter Details Date Type Department Care Team (Late st Contact Info) Description 01/24/2019 Abstract SFL CONVERSION [address] [place] [address] , Generic Conversion, Social History Tobacco Use Types Packs/Day Years Used Date Smoking Tobacco: Never Assessed Comments Unknown Sex and Gender Information Value Date Recorded Sex Assigned at Not on file Legal Sex Female 5:53 PM GUARD CHIEF Gender Identity Not on file Sexual Orientation Not on file documented as of this encounter Plan of Treatment Not on file documented as of this encounter Visit Diagnoses Not on filedocumented in this encounter Additional Health Concerns Infection Onset Date Last Indicated Resolved Time COVID-19 Rule Out 08/16/2022 08/16/2022 08/16/2022 3:38 AM GUARD CHIEF documented as of this encounter Care Teams Clothing Trades Workers Relationship Specialty Start Date End Date Avery Rosenbaum MD [address] [place] [address] PCP - General FAMILY PRACTICE 06/15/19 documented as of this encounter
--- OUTSIDE RECORDS SUMMARY | 2025-03-19 18:04 | XMS_ITS | Clinical Summary ---
Author Organization [address] lto Address [address] [place] [address] Care Team Providers Care Liability Claims Representative Name Role Phone Avery Rosenbaum MD Primary Care Provider [phone] Allergies Active Allergy Reactions Criticality Noted Date Comments Real Juice Unknown 02/14/2021 Medications venlafaxine XR (EFFEXOR-XR) 37.5 mg 24 hr capsule 01/18/2021 Active SUMAtriptan (IMITREX) 50 mg tablet Take 50 mg by mouth 2 (two) times a day as needed Active nitrofurantoin monohydrate (MACROBID) 100 mg capsule Take 1 capsule (100 mg total) by mouth 2 (two) times a day 10 capsule 02/14/2021 Active phenazopyridine (PYRIDIUM) 200 mg tablet Take 1 tablet (200 mg total) by mouth 3 (three) times a day 6 tablet 02/14/2021 Active Active Problems No known active problems Social History Tobacco Use Types Packs/Day Years Used Date Smoking Tobacco: Every Day Smokeless Tobacco: Never Personal Safety Answer Date Recorded Getting School Help Needed Not on file 10/12 Comments No Sex and Gender Information Value Date Recorded Sex Assigned at Not on file Legal Sex Female 11:58 AM HOME MANAGEMENT SUPERVISOR Gender Identity Not on file Sexual Orientation Not on file Obstetrics History Last Filed Vital Signs Vital Sign Reading Time Taken Comments Blood Pressure 133/79 02/14/2021 12:14 PM CDT Pulse 102 02/14/2021 12:14 PM CDT Temperature 36.7 C (98 F) 02/14/2021 12:14 PM CDT Respiratory Rate 18 02/14/2021 12:14 PM CDT Oxygen Saturation 99% 02/14/2021 12:14 PM CDT Inhaled Oxygen Concentration - - Weight 81.6 kg (180 lb) 02/14/2021 12:14 PM CDT Height 162.6 cm (5' 4) 02/14/2021 12:14 PM CDT Body Mass Index 30.9 02/14/2021 12:14 PM CDT Plan of Treatment Not on file Insurance AETNA [facility] Care Teams Liability Claims Representative Relationship Specialty Start Date End Date vAery Rosenbaum MD [address] [place] [address] PCP - General Family Medicine 08/13/19
--- OUTSIDE RECORDS SUMMARY | 2025-03-19 18:04 | XMS_ITS | Clinical Summary ---
Author Organization [facility] Address [address] [place] [address] Care Team Providers Care Correspondent Name Role Phone Avery Rosenbaum MD Primary Care Provider Medications ferrous sulfate, 65 mg elemental, 325 (65 FE) MG tablet Take 1 tablet (325 mg total) by mouth 2 (two) times a day. 30 tablet 08/13/2022 Active folic acid (FOLVITE) 1 MG tablet Take 1 tablet (1 mg total) by mouth daily. 30 tablet 08/13/2022 Active vitamin B-12 (CYANOCOBALAMIN) (CYANOCOBALAMIN) 1000 mcg tablet Take 1 tablet (1,000 mcg total) by mouth daily. 30 tablet 08/13/2022 Active venlafaxine XR (EFFEXOR- XR) 150 MG 24 hr tablet Take 1 tablet (150 mg total) by mouth daily. Take 1/2 tablet daily for 4 days then take 1 tablet daily 30 tablet 08/13/2022 Active Active Problems Problem Noted Date Diagnosed Date Gestational hypertension (HHS/HCC) 08/17/2022 Overview (08/17/2022): Chronic hypertension not excluded. We have not been able to obtain records to assess blood pressures from early . 08/17/2022 spinal headache (HHS/HCC) 08/17/2022 Overview (08/17/2022): Headache resolved with immediately with blood patch History of methamphetamine use 08/17/2022 Overview (08/17/2022): 08/17/2022. She tested positive on 08/11/2022. She tested negative on drug screen with this admission Chronic anemia 08/17/2022 Overview (08/17/2022): Iron and vit b 12 deficiency. Recent vaginal delivery but her hemoglobin is 8 and meets that of what she was prior to delivery. Chronic anemia 08/12/2022 Overview (08/12/2022): Hemoglobin on admission low at <9. Workup in progress. Depression affecting ([facility]) 022 Acute depression 08/12/2022 Overview (08/12/2022): She is upset over not only having to give up her , but informed 08/12/2022 by DCFS that she can't speak to her older child, and may loose access to that child with DCFS intervention.. Labor and delivery, indication for care ([facility] ) 08/11/2022 Term ([facility]) 08/11/2022 Overview (08/11/2022): EDC of August 22, 2022 by dates given by the patient. She said she had five week US. Methamphetamine use 08/11/2022 Family History Medical History Relation Comments Cancer Maternal Grandmother Relation Status Comments Maternal Grandmother Social History Tobacco Use Types Packs/Day Years Used Date Smoking Tobacco: Former Cigarettes Q uit: 08/04/2022 Smokeless Tobacco: Never Tobacco Cessation:Counseling Given: Not Answered Alcohol Use Standard Drinks/Week Comments Not Currently 0 (1 standard drink = 0.6 oz pur e alcohol) Humiliation, Afraid, Rape, and Kick questionnair e Answer Date Recorded Within the last year, have y ou been afraid of your partner or ex-partner? No 08/11/2022 Within the last year, have y ou been humiliated or emotionally abused in other ways by your partner or ex-partner? No Within the last year, have y ou been kicked, hit, slapped, or otherwise physically hurt by your partner or ex-partner? No 08/11/2022 Within the last year, have y ou been raped or forced to have any kind of sexual activity by your partner or ex-partner? No 08/11/2022 Social Connection and Isolation Panel [NHANES] A nswer Date Recorded In a typical week, how many times do you talk on the phone with family, friends, or neighbors? Three times a week 08/11/2022 How often do you get togethe r with friends or relatives? Once a week 08/11/2022 How often do you attend chur or tenriism services? Never 08/11/2022 Do you belong to any clubs o r organizations such as jehovah's witness groups, unions, fraternal or athletic groups, or school groups? No 08/11/2022 How often do you attend meet ings of the clubs or organizations you belong to? Never 08/11/2022 Are you , , di vorced, , never , or living with a partner? Never 08/11/2022 AUDIT-C Answer Date Recorded Q1: How often do you have a drink containing alcohol? Never 08/11/2022 Q2: How many drinks containi ng alcohol do you have on a typical day when you are drinking? Patient does not drink Q3: How often do you have si x or more drinks on one occasion? Never 08/11/2022 Overall Financial Resource Strain (CARDIA) Answe r Date Recorded How hard is it for you to pa y for the very basics like food, housing, medical care, and heating? Very hard 08/11/2022 [facility] - Occupational Stress Questionnaire Answer Date Recorded Do you feel stress - tense, restless, nervous, or anxious, or unable to sleep at night because your mind is troubled all the time - these days? Very much 08/11/2022 Exercise Vital Sign Answer Date Recorde d On average, how many days pe r week do you engage in moderate to strenuous exercise (like a brisk walk)? 0 days 08/11/2022 On average, how many minutes do you engage in exercise at this level? 0 min 08/11/2022 Hunger Vital Sign Answer Date Recorded Within the past 12 months, y ou worried that your food would run out before you got the money to buy more. Often true 08/11/20 22 Within the past 12 months, t he food you bought just didn't last and you didn't have money to get more. Often true 08/11/2022 PRAPARE - Transportation Answer Date Re corded In the past 12 months, has l ack of transportation kept you from medical appointments or from getting medications? Yes 07/20 In the past 12 months, has l ack of transportation kept you from meetings, work, or from getting things needed for daily living? Yes 08/11/2022 Housing Stability Vital Sign Answer Kyle e Recorded In the last 12 months, was t here a time when you were not able to pay the mortgage or rent on time? Yes 08/11/2022 In the last 12 months, how many places have you lived? 4 08/11/2022 In the last 12 months, was t here a time when you did not have a steady place to sleep or slept in a intermediate (including now)? Yes 08/11/2022 Comments No Sex and Gender Information Value Date Recorded Sex Assigned at Not on file Legal Sex Female 5:53 PM HOME IMPROVEMENT ADVISOR Gender Identity Not on file Sexual Orientation Not on file Last Filed Vital Signs Vital Sign Reading Time Taken Comments Blood Pressure 140/89 08/17/2022 8:23 AM HOME IMPROVEMENT ADVISOR Pulse 80 08/17/2022 8:23 AM HOME IMPROVEMENT ADVISOR Temperature 36.3 C (97.3 F) 08/17/2022 8:23 AM HOME IMPROVEMENT ADVISOR Respiratory Rate 16 08/17/2022 8:23 AM HOME IMPROVEMENT ADVISOR Oxygen Saturation 99% 08/16/2022 5:05 PM HOME IMPROVEMENT ADVISOR Inhaled Oxygen Concentration - - Weight 91.7 kg (202 lb 3.2 oz) 08/15/2022 8:33 P M HOME IMPROVEMENT ADVISOR Height 162.6 cm (5' 4) 08/15/2022 8:33 PM HOME IMPROVEMENT ADVISOR Body Mass Index 34.71 08/15/2022 8:33 PM HOME IMPROVEMENT ADVISOR Plan of Treatment Health Maintenance Due Date Last Done Comments Cervical Cancer Screening Pap Smear (Age 30 to 64) Every 3 Years 1990 Annual Physical 1993 Hepatitis B Vaccines (1 of 3 - 19+ 3-dose series) 2009 HPV Vaccines (1 - 3-dose SCDM series) 2017 Cervical Cancer Screening Pap with HPV Testing (Age 30 to 64) Every 5 Years 2020 Cervical Cancer Screening with HPV 2020 COVID-19 Vaccine (1 - 2023- season) 2024 DTaP, Tdap and Td Vaccines (2 - Td or Tdap) 05/18/2025 05/18/2015, 04/20/1994, 04/22/1992, Additional history exists Hepatitis C Completed 08/11/2022 Meningococcal B Vaccine Aged Out No l onger eligible based on patient's age to complete this topic Meningococcal Vaccine Aged Out No hansa eb eligible based on patient's age to complete this topic Pneumococcal Vaccine: Pediatrics (0 to 5 Years) and At-Risk Patients (6 to 49 Years) Aged Out No longer eligible based on patient's age to complete this topic RSV Immunizations Under 20 Months Aged Out No longer eligible based on patient's age to complete this topic Procedures Procedure Name Priority Date/Time Associated Diagnosis Comments HEPATITIS C ANTIBODY Routine 08/11/2022 4:00 PM HOME IMPROVEMENT ADVISOR from Last 3 Months or Most Recently Relevant to Health Maintenance Results * HEPATITIS C ANTIBODY (08/11/2022 4:00 PM HOME IMPROVEMENT ADVISOR) HEPATITIS C AB NON-REACTI VE NON-REACT KEY 08/12/2022 12:22 PM HOME IMPROVEMENT ADVISOR [facility] Comment: ANTIBODIES TO HCV NOT DETECTED. DOES NOT EXCLUDE THE POSSIBILITY OF EXPOSURE TO HCV. 08/11/2022 4:00 PM HOME IMPROVEMENT ADVISOR Kj Oliver MD LABORATORY Final Result [facility] [address] [place] [address], [id number] from Last 3 Months or Most Recently Relevant to Health Maintenance Insurance [employer] Advance Directives * Full Code (Latest Code Status on File) Date Activated Date Inactivated Comments 08/15/2022 10:09 PM 08/17/2022 4:18 PM * Full Code Date Activated Date Inactivated Comments 08/11/2022 3:38 PM 08/11/2022 7:31 PM Care Teams Correspondent Relationship Specialty Start Date End Date Avery Rosenbaum MD [address] [place] [address] [place] [address] PCP - General FAMILY PRACTICE 06/15/19
--- OUTSIDE RECORDS SUMMARY | 2025-03-19 18:04 | XMS_ITS | Referral Summary ---
Author Organization [address] lto Address [address] [place] [address] Care Team Providers Care Nutrition Manager Name Role Phone Avery Rosenbaum MD Primary Care Provider [phone]- [phone] Allergies Active Allergy Reactions Criticality Noted Date Comments Cook Juice Unknown 02/14/2021 Medications venlafaxine XR (EFFEXOR-XR) [...] on file Legal Sex Female 11:58 AM DIET AIDE Gender Identity Not on file Sexual Orientation [...] of Treatment Not on file Insurance AETNA [facility] Care Teams Nutrition Manager Relationship Specialty Start Date End Date Avery Rosenbaum MD [address] [place] [address] PCP - General Family Medicine 08/13/19
--- NOTE | 2025-03-19 18:13 | ED.HA ---
HPI - Headache General Chief Complaint: Headache Stated Complaint: migraine Time Seen by Provider: 03/19/25 18:12 Source: patient Mode of arrival: ambulatory Limitations: no limitations History of Present Illness HPI Narrative: Patient is a 34-year-old female with a migrainous type headache and prior history of migraines. She is having left-sided headache and bilateral posterior eye pains. This has been a week now. Some nausea. Otherwise this is not the worst headache of her life and she has had 1 many years ago similarly. MD elicited complaint: headache and migraine Pertinent past history: migraines Onset (ago): week(s) ( One) Onset description: gradually Location: left, temporal, diffuse and retro-orbital Severity: moderate Pain scale (0-10): 7 Quality & Timing: throbbing, sharp, progressively worsening and similar to previous headaches Exacerbating factors: exertion, movement of head/neck, sitting/standing, light and noise Relieving factors: nothing Context: occurred at rest and occurred with exertion/activity Associated symptoms: nausea Treatments prior to arrival: acetaminophen, ibuprofen and migraine medication Related Data Home Medications ?Medication ?Instructions ?Recorded ?Confirmed ?Last Taken ?Type No Home Medications 10/19/23 10/19/23 Unknown History Allergies Allergy/AdvReac Type Severity Reaction Status Date / Time No Known Allergies Allergy Mild Verified 10/19/23 18:36 Review of Systems Review of Systems: All systems reviewed & are unremarkable except as noted in HPI and below Constitutional: Constitutional: Reports no additional constitutional complaints Eyes: Eyes: Reports no additional eye complaints ENT: Reports system reviewed and no additional complaints, except as documented Cardiovascular: Cardiovascular: Reports no additional cardiovascular complaints Respiratory: Respiratory: Reports no additional respiratory complaints Gastrointestinal: Gastrointestinal: Reports no additional gastrointestinal complaints Genitourinary: Genitourinary: Reports no additional female genitourinary complaints Musculoskeletal: Musculoskeletal: Reports no additional musculoskeletal complaints Integumentary/Breasts: Skin/Breast: Reports system reviewed and no additional complaints, except as docu Neurologic: Reports system reviewed and no additional complaints, except as documented Psychiatric: Psychiatric: Reports no additional psychiatric complaints Endocrine: Endocrine: Reports no additional endocrine complaints Hematologic/Lymphatic: Hematologic/Lymphatic: Reports no additional hematologic/lymphatic complaints Allergic/Immunologic: Allergic/Immunologic: Reports no additional allergic/immunologic complaints PMFSH Past Medical History Medical History Drug abuse Depression History of migraine Surgical History Surgical History Hx of tonsillectomy Family History Family History Mother Healthy female Grandparent Breast cancer Social History Social History Social History: The patient and her 6-year-old daughter recently moved back in with her mother. 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 She has smoked half pack of cigarettes per day since she was 18. She smokes methamphetamines on a frequent basis. She occasionally smokes marijuana. She rarely uses cocaine. She denies any IV drug use. She binge drinks every other weekend or so. Surrogate decision maker: Mother Smoking packs per day: 0.5 Smoking cigarettes per day: 10.0 Years smoked: 10 Smoking pack-years: 5.00 Smoking status: Light tobacco smoker Tobacco type: cigarettes Second hand tobacco smoke exposure: No Alcohol intake: current Drinks per week: 5 Substance use: current Substance use type: marijuana, crack/cocaine, methamphetamine and prescription drug Last use: last weekend Living arrangements: with family Gender identity (if verbalized by the patient): Male Sexual Orientation (if Verbalized by the Patient): Straight or Heterosexual Spiritual care concerns: No Exam Const: General: healthy appearing Nutritional Appearance: well nourished Orientation/consciousness: patient oriented x3 HENMT: Head: normal to inspection Ears: external ears normal Face/Nose/Sinus: Normal external nose present Eyes: Conjunctivae: conjunctivae normal Pupils: Equal, round and reactive pupils present EOM: EOMs intact bilaterally Neck: Neck: normal visual inspection Chest: Chest palpation & inspection: normal inspection of the chest Resp: Effort & Inspection: normal respiratory effort and not labored Auscultation: clear to auscultation bilaterally and no crackles Cardio: Rate: regular rate Rhythm: regular rhythm Heart sounds: no murmurs GI: Inspection: non-distended GI Palp: Yes Soft to palpation and No Tenderness to palpation present (GI) Auscultation: normal bowel sounds : General: Yes bladder normal to palpation Back/Spine/Pelvis: Back: no CVA tenderness Skin: General skin exam: normal color Rashes: no rashes Wounds: no wounds Neuro: General: patient oriented x3, moves all extremities, no meningeal signs, no focal motor deficits and CN's II-XI intact bilaterally Cranial nerves: Yes Nystagmus not present Speech: normal speech Gait exam (Neuro): Normal gait present Other: fast exam negative, NIH score 0, GCS is 15 Extrem: General: normal to inspection Psych: Mental Status: mental status grossly normal Affect: normal affect Attitude: cooperative Course Vital Signs Vital signs: Vital Signs Temperature 36.7 C 03/19/25 18:03 Pulse Rate 80 03/19/25 18:03 Respiratory Rate 16 03/19/25 18:03 Blood Pressure 142/94 H 03/19/25 18:03 Pulse Oximetry 97 03/19/25 18:03 Oxygen Delivery Room Air 03/19/25 18:03 Temperature 36.7 C 03/19/25 18:03 Pulse Rate 80 03/19/25 18:03 Respiratory Rate 16 03/19/25 18:03 Blood Pressure 142/94 H 03/19/25 18:03 Pulse Oximetry 97 03/19/25 18:03 Oxygen Delivery Room Air 03/19/25 18:03 MDM - Headache MDM Narrative Medical decision making narrative: patient is a 34-year-old female with a migrainous type headache similar to prior headaches. We will do triple treatment of Reglan Benadryl and Toradol IV. Urinalysis and urine . Patient has resolved headache. Lab Data Attestation: I reviewed the patient's lab results. Labs: Lab Results 03/19/25 Range/Units 18:30 Urine Color Light yellow (Yellow) Urine Appearance Clear (Clear) Urine pH 6.0 (5.0-8.0) Ur Specific [place] <= 1.005 L (1.010-1.020) Urine Protein Negative (Negative) Urine Glucose (UA) Negative (Negative) Urine Ketones Negative (Negative) Ur Blood (Man) Trace-intact H (Negative) Urine Nitrate Negative (Negative) Urine Bilirubin Negative (Negative) Urine Urobilinogen 0.2 (0.2-1.0) mg/dL Leukocyte Esterase Rfl Negative (Negative) ERICH/UL Urine Test Negative Discharge Plan Discharge Clinical Impression: Cephalgia Qualifiers: Headache type: unspecified Headache chronicity pattern: acute headache Intractability: not intractable Qualified Code(s): R51.9 - Headache, unspecified Patient Disposition: Home Condition: Improved Instructions: Migraine Headache (ED) Patient Language: [place] Prescriptions: No Action No Home Medications Follow-up/Referrals: Avery Rosenbaum M.D. [Primary Care Provider] - Time of Disposition: 19:43
[2025-03-19] MEDS: KETOROLAC 30 MG/ML VIAL (*BKC) IV PUSH (18:49)
[2025-03-19 18:50] LABS: Add Urine Microscopic? NO; Appearance Urine Clear (Clear); Glucose Urine UA Negative (Negative); Leukocyte Esterase Ur Negative LEU/UL (Negative); Nitrate Urine Negative (Negative); Specific Grav Ur <= 1.005 (1.010-1.020)
[2025-03-19] MEDS: METOCLOPRAMIDE HCL INJ 10 MG/2 ML VIAL IV PUSH (18:51)
[2025-03-19 18:52] LABS: Pregnancy On Board Control Positive
--- NOTE | 2025-03-19 19:09 | PC.NURSE ---
report to harpal bojorquez
[2025-03-19 19:57] VITALS: BP 138/87; PULSE 80; RESP 16; TEMP 36.7; O2SAT 100
== END 2025-03-19 19:59 | disposition home or self-care (01) ==
PROVIDERS: Emergency Provider Emergency Medicine; PCP Family Medicine
DX: R51.9 Headache, unspecified (principal); F17.210 Nicotine dependence, cigarettes, uncomplicated
CPT/HCPCS: 81003; 81025; 96374; 96375; 99284; J1200; J1885; J2765

== ENCOUNTER 2025-04-14 17:53 | Outpatient (CLI) | payer OTHER, SELFPAY ==
--- NOTE | ~2025-04-14 | CT_ITS ---
EXAMINATION: CT BRAIN W/O DATE: 04/14/2025 18:12 INDICATION: Chronic migraine headaches TECHNIQUE: Computed tomography (CT) of the head was performed without intravenous contrast. The dose-length product was 529.67 mGy-cm. Automated exposure control and iterative reconstruction technique were employed. COMPARISON: No prior studies for comparison. FINDINGS: Normal brain parenchymal volume for age. Normal aden-white differentiation. No acute intracranial hemorrhage, infarction, mass or mass effect. No ventriculomegaly or midline shift. Midline sagittal images demonstrate a normal corpus callosum, craniovertebral junction and sella turcica. Basilar cisterns are patent. Paranasal sinuses and mastoids are pneumatized. No depressed skull fractures. IMPRESSION: 1. No acute intracranial abnormality. Reviewed, dictated and finalized at location O.
== END 2025-04-14 17:54 | disposition home or self-care (01) ==
LOC: CHSIMG 17:55
PROVIDERS: PCP Family Medicine
DX: G43.709 Chronic migraine without aura, not intractable, without status migrainosus (principal)
CPT/HCPCS: 70450